=== PATIENT | male | born 1970 | race Caucasian/White ===

== ENCOUNTER → 2016-12-02 | Outpatient (CLI) | payer OTHER ==
[~2016-12-02] MED LIST: ARIP15TA PO; CARB200T PO; CGN1 PO; QUET1TAB9 PO; RISP3TAB12 PO; SERT50TA PO; ZOLP10TA PO
== END | disposition home or self-care (01) ==
LOC: C.RDSM 14:04
PROVIDERS: ATTEND Orthopaedic Surgery Sports Medicine
DX: M25.571 Pain in right ankle and joints of right foot (principal)

== ENCOUNTER → 2017-04-07 | Outpatient (CLI) | payer OTHER ==
[2017-04-07 12:28] LABS: BLOOD UREA NITROGEN 11 mg/dl (7-18); BUN/CREATININE RATIO 12.1 (10-20); CARBON DIOXIDE 25 mmol/L (21-32); CHLORIDE 108 mmol/L (98-107); CHOLESTEROL 174 mg/dl (0-200); CREATININE 0.94 mg/dl (0.60-1.40); GLUCOSE 122 mg/dl (70-99); POTASSIUM 3.8 mmol/L (3.5-5.1); SODIUM 140 mmol/L (136-145); TRIGLYCERIDES 93 mg/dl (0-150); VERY LOW DENSITY LIPOPROT CALC 19 mg/dl
[2017-04-07 12:31] LABS: CHOLESTEROL/HDL RATIO 2.9; HDL CHOLESTEROL 59 mg/dl; LDL CHOLESTEROL CALCULATED 96 mg/dl
[2017-04-07 12:34] LABS: CALCIUM 8.8 mg/dl (8.5-10.1)
[2017-04-07 13:13] LABS: ESTIMATED AVERAGE GLUCOSE 105 mg/dl; HA1C FLAG Normal (Normal)
== END | disposition home or self-care (01) ==
LOC: C.LAB1850 10:20
PROVIDERS: ATTEND Internal Medicine
DX: R73.01 Impaired fasting glucose (principal); E78.1 Pure hyperglyceridemia

== ENCOUNTER → 2017-07-19 | Outpatient (CLI) | payer OTHER | END | disposition home or self-care (01) | LOC: C.RDSM 12:14 | PROVIDERS: ATTEND Orthopaedic Surgery Sports Medicine | DX: M25.561 Pain in right knee (principal) ==

== ENCOUNTER → 2017-10-25 | Outpatient (CLI) | payer OTHER | END | disposition home or self-care (01) | LOC: C.LAB1850 08:07 | PROVIDERS: ATTEND Psychiatry & Neurology Psychiatry | DX: Z51.81 Encounter for therapeutic drug level monitoring (principal); Z79.899 Other long term (current) drug therapy ==

== ENCOUNTER → 2018-02-01 | Outpatient (CLI) | payer OTHER ==
[2018-02-01 12:17] LABS: BLOOD UREA NITROGEN 14 mg/dl (7-18); CALCIUM 8.8 mg/dl (8.5-10.1); CARBON DIOXIDE 25 mmol/L (21-32); CHOLESTEROL 193 mg/dl (0-200); CREATININE 1.09 mg/dl (0.60-1.40); GLUCOSE 157 mg/dl (70-99); POTASSIUM 3.8 mmol/L (3.5-5.1); SODIUM 137 mmol/L (136-145)
[2018-02-01 12:20] LABS: LDL CHOLESTEROL CALCULATED 116 mg/dl
[2018-02-01 12:22] LABS: HEMOGLOBIN A1C 5.3 % (4.5-5.6)
== END | disposition home or self-care (01) ==
LOC: C.LAB1850 10:47
PROVIDERS: ATTEND Internal Medicine
DX: E78.1 Pure hyperglyceridemia (principal); R73.01 Impaired fasting glucose

== ENCOUNTER → 2018-06-06 | Outpatient (CLI) | payer OTHER ==
[2018-06-06 10:30] LABS: HEMOGLOBIN A1C 5.3 % (4.5-5.6)
== END | disposition home or self-care (01) ==
LOC: C.LAB1850 07:50
PROVIDERS: ATTEND Psychiatry & Neurology Psychiatry
DX: Z51.81 Encounter for therapeutic drug level monitoring (principal); Z79.899 Other long term (current) drug therapy

== ENCOUNTER 2019-12-16 19:02 | Inpatient (IN) ==
--- NOTE | 2019-12-16 20:07 | XRay Report ---
XR hip RT 2V w pelvis, XR femur RT 2V routine CLINICAL HISTORY: fall. Right hip and right leg pain. COMPARISON STUDY: Leg length study 11/21/2019. FINDINGS: No fracture or dislocation within the pelvis or left hip. The sacrum appears intact. Slight ly impacted right femoral neck fracture. The mid to distal femur is intact. IMPRESSION: Slightly impacted right femoral neck fracture. ACT 112: Negative or not required by law. Electronically signed by: Matt Newell M.D. 12/16/2019 8:06 PM
[2019-12-16 21:06] LABS: Basophils # (auto) 0.01 K/uL (0-0.2); Basophils % (auto) 0.1 %; Eosinophils # (auto) 0.01 K/uL (0-0.5); Eosinophils % (auto) 0.1 %; Hematocrit (blood only) 44.9 % (42-52); Hemoglobin 15.8 g/dL (14.0-18.0); Immature Granulocytes # (auto) 0.03 K/uL (0.00-0.02); Immature Granulocytes % (auto) 0.2 %; Lymphocytes # (auto) 0.58 K/uL (1.2-3.4); Lymphocytes % (auto) 4.7 %; Mean Corpuscular Hemoglobin 31.9 pg (25-34); Mean Corpuscular Hgb Conc 35.2 g/dL (32-36); Mean Corpuscular Volume 90.5 fL (80-100); Mean Platelet Volume 9.1 fL (7.4-10.4); Monocytes # (auto) 0.46 K/uL (0.11-0.59); Monocytes % (auto) 3.7 %; Neutrophils # (auto) 11.36 K/uL (1.4-6.5); Neutrophils % (auto) 91.2 %; Platelet Count 139 K/uL (130-400); RDW Coefficient of Variation 12.4 % (11.5-14.5); RDW Standard Deviation 40.8 fL (36.4-46.3); Red Blood Count 4.96 M/uL (4.7-6.1); White Blood Count 12.45 K/uL (4.8-10.8)
[2019-12-16 21:17] LABS: INR 1.2 (0.9-1.1); Partial Thromboplastin Time 25.9 Seconds (21.0-31.0); Prothrombin Time 12.2 Seconds (9.0-12.0)
[2019-12-16 21:21] LABS: BUN Creatinine Ratio 12.6 (10-20); Blood Urea Nitrogen 15 mg/dl (7-18); Calcium 9.1 mg/dl (8.5-10.1); Carbon Dioxide 27 mmol/L (21-32); Chloride 104 mmol/L (98-107); Est GFR (African American) 79.9; Est GFR (Non-African American) 68.9; Glucose 117 mg/dl (70-99); Potassium 4.1 mmol/L (3.5-5.1); Sodium 138 mmol/L (136-145)
[2019-12-16 21:30] LABS: Appearance Urine Clear (Clear); Bilirubin Urine Negative (Negative); Blood Urine Negative (Negative); Color Urine Yellow; Glucose Urine UA Negative (Negative); Ketones Urine Negative (Negative); Leukocyte Esterase Urine Negative (Negative); Nitrite Urine Negative (Negative); Protein Urine Negative (Negative); Urobilinogen Urine Negative (Negative)
--- NOTE | 2019-12-16 21:39 | XRay Report ---
XR chest 1V portable HISTORY: pre op COMPARISON: Chest 07/09/2008. FINDINGS: The lungs are clear. Cardiac silhouette is normal in size. No pleural effusions. No pneumot horax. IMPRESSION: No acute process. ACT 112: Negative or not required by law. Electronically signed by: Matt Newell M.D. 12/16/2019 9:38 PM
--- NOTE | 2019-12-16 22:14 | History & Physical Report ---
Date of Service December 16, 2019 Assessment & Plan (1) Closed fracture of neck of right femur: Closed right femoral neck fracture- N.p.o. after midnight except essential medications. NSS + KCl 20 mEq at 100 mils per hour. Tylenol 650 mg p.o. every 6 hours. Mild pain or temperature. Elmer 5/325, 1 p.o. every 4 hours PRN moderate pain. Morphine sulfate 4 mg IV every 3 hours as needed severe pain. Consult orthopedics. Present on Admission?: Yes (2) Essential hypertriglyceridemia: On no noted treatment. Check a fasting lipid panel in the a.m. Present on Admission?: Yes (3) Depression: Depression/schizoaffective disorder/mental disability/seizure disorder- Continue Zyprexa, benztropine, carbamazepine, Seroquel, risperidone, sertraline and zaleplon. Present on Admission?: Yes (4) Schizoaffective disorder: See above Present on Admission?: Yes (5) Mental disability: See above Present on Admission?: Yes (6) Seizures: See above Present on Admission?: Yes (7) Eczema: Continue usual topical agents. Present on Admission?: Yes History of Present Illness Chief Complaint: The patient presents to the emergency department complaint of right hip pain after he fell on his right hip while playing basketball earlier in the day prior to arrival. Primary Care Provider: Tyler Golden MD The patient is a 49-year-old male with a past medical history including depression, dermatitis, eczema, essential hypertriglyceridemia, folliculitis, insomnia, schizoaffective disorder, left radial head fracture and mental disability. He presents to the emergency department after he developed right hi p pain after falling while playing basketball earlier in the day. He reports that he waited about 6 hours after the injury to come to the ED. Allergies Allergy/AdvReac Type Severity Reaction Status Date / Time No Known Allergies Allergy Verified 12/16/19 20:11 Home Medications Home Medications Medication Instructions Recorded Confirmed Type aripiprazole 15 mg tablet 15 mg PO DAILY tab 07/24/19 12/16/19 History benztropine 1 mg tablet 1 mg PO QAM tab 07/24/19 12/16/19 History carbamazepine 400 mg 400 mg PO BID tab 07/24/19 12/16/19 History tablet,extended release,12 hr clindamycin phosphate 1 % topical 1 appln TOPICAL .COMPLEX ml 07/24/19 12/16/19 History solution fluocinonide 0.05 % topical 1 appln TOPICAL .COMPLEX gm 07/24/19 12/16/19 History ointment hydrocortisone 1 % topical ointment 1 appln TOPICAL .COMPLEX gm 07/24/19 12/16/19 History risperidone 3 mg tablet 3 mg PO HS tab 07/24/19 12/16/19 History sertraline 25 mg tablet 25 mg PO HS tab 07/24/19 12/16/19 History triamcinolone acetonide 0.1 % 1 appln TOPICAL .COMPLEX gm 07/24/19 12/16/19 History topical cream quetiapine 100 mg PO HS 12/16/19 12/16/19 History zaleplon 10 mg PO HS PRN 12/16/19 12/16/19 History Past Med/Surg History Medical History Depression (Acute) Dermatitis (Acute) Eczema (Acute) Essential hypertriglyceridemia (Acute) Folliculitis (Acute) Insomnia (Acute) Irritation of left eye (Acute) Left radial head fracture (Acute) Mental disability (Acute) Osteoarthritis of knee (Acute) Otalgia, bilateral (Acute) Schizoaffective disorder (Acute) Seizures Surgical History History of left knee surgery Family History Grandmother Diabetes Grandfather Coronary heart disease Social History Preferred Language: Malay Communication 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 Beliefs That Will Affect Care: None marital status: Current Living Situation: Significant Other current occupational status: disabled Other Information That Helps Us Care for You: No Feels Safe at Home: Yes Safety Concerns: Feels Safe At This Time Smoking Status: Never smoker Do You Dip or Chew Tobacco: No ; Hx Alcohol Use: No Hx Substance Use: No Review of Systems Review of Systems: The patient denies chest pain, palpitations, shortness of breath, dyspnea on exertion, cough, lower extremity swelling, sore throat, fevers, chills, sweats, weight change, fatigue, nausea, vomiting, diarrhea , constipation, abdominal pain, pelvic pain, blood in urine or stool, dysuria, urinary frequency or urgency, lightheadedness, dizziness, headache, memory loss, loss of consciousness, rash, abnormal bruising or bleeding, focal or generalized weakness, numbness or tingling in arms or left leg, generalized arthralgias or myalgias, back or neck pain, or night sweats. The review of systems is otherwise negative other than for that already noted above, and at least 10 systems have been reviewed. Physical Exam Physical Exam: The patient is awake, alert and oriented 3, well developed and well nourished, normocephalic and atraumatic, lying in bed and in no acute distress. HEENT--PERRL, EOMI, mucous membranes and oropharynx dry. Neck--supple. No JVD. No bruits. Thyroid normal, trachea midline, no adenopathy. Heart--normal S1 and S2. No murmurs, rubs or gallops. Lungs--clear bilaterally, no respiratory distress, no accessory muscle use. Abdomen--normal bowel sounds and soft. Nontender. Nondistended, no hernias or masses, no organomegaly. Extremities--no cyanosis or clubbing. No edema. There are good distal pulses b/l. Dermatologic--normal skin turgor, normal color, no abnormal lymph nodes, no rash. Neurologic--cranial nerves II through XII grossly intact. Rheumatologic--decreased range of motion of right hip, with reproducible pain ov er right hip and pelvic area Psychiatric--normal affect. Results & Data Vital Signs (Past 12 Hours) Vital Signs Temp Pulse Pulse Resp BP BP Pulse Ox 12/16/19 22:06 98 12/16/19 22:02 75 123/70 98 12/16/19 19:05 98.2 F 74 18 109/73 95 Laboratory Results Laboratory Results WBC 12.45 K/uL (4.8-10.8) H 12/16/19 20:55 RBC 4.96 M/uL (4.7-6.1) 12/16/19 20:55 Hgb 15.8 g/dL (14.0-18.0) 12/16/19 20:55 Hct 44.9 % (42-52) 12/16/19 20:55 MCV 90.5 fL (80-100) 12/16/19 20:55 MCH 31.9 pg (25-34) 12/16/19 20:55 MCHC 35.2 g/dL (32-36) 12/16/19 20:55 RDW Std Deviation 40.8 fL (36.4-46.3) 12/16/19 20: RDW Coeff of Silvia 12.4 % (11.5-14.5) 12/16/19 20: Plt Count 139 K/uL (130-400) 12/16/19 20: MPV 9.1 fL (7.4-10.4) 12/16/19 20:55 Immature Gran % (Auto) 0.2 % 12/16/19 20:55 Neut % (Auto) 91.2 % 12/16/19 20:55 Lymph % (Auto) 4.7 % 12/16/19 20:55 Stokes % (Auto) 3.7 % 12/16/19 20:55 Eos % (Auto) 0.1 % 12/16/19 20:55 Baso % (Auto) 0.1 % 12/16/19 20:55 Immature Gran # (Auto) 0.03 K/uL (0.00-0.02) H 12/16/19 20:55 Neut # (Auto) 11.36 K/uL (1.4-6.5) H 12/16/19 20:55 Lymph # (Auto) 0.58 K/uL (1.2-3.4) L 12/16/19 20:55 Stokes # (Auto) 0.46 K/uL (0.11-0.59) 12/16/19 20:55 Eos # (Auto) 0.01 K/uL (0-0.5) 12/16/19 20:55 Baso # (Auto) 0.01 K/uL (0-0.2) 12/16/19 20:55 PT 12.2 Seconds (9.0-12.0) H 12/16/19 20:55 INR 1.2 (0.9-1.1) H 12/16/19 20:55 APTT 25.9 Seconds (21.0-31.0) 12/16/19 20:55 PTT Ratio 1.0 12/16/19 20:55 Sodium 138 mmol/L (136-145) 12/16/19 20:55 Potassium 4.1 mmol/L (3.5-5.1) 12/16/19 20:55 Chloride 104 mmol/L (98-107) 12/16/19 20:55 Carbon Dioxide 27 mmol/L (21-32) 12/16/19 20:55 Anion Gap 6.0 (3-11) 12/16/19 20:55 BUN 15 mg/dl (7-18) 12/16/19 20:55 Creatinine 1.21 mg/dl (0.6-1.4) 12/16/19 20:55 Est Cr Clr Drug Dosing Not Reportable 12/16/19 20:55 Est GFR ( Amer) 79.9 12/16/19 20:55 Est GFR (Non-Af Amer) 68.9 12/16/19 20:55 BUN/Creatinine Ratio 12.6 (10-20) 12/16/19 20:55 Glucose 117 mg/dl (70-99) H 12/16/19 20:55 Calcium 9.1 mg/dl (8.5-10.1) 12/16/19 20:55 Urine Color Yellow 12/16/19 21:15 Urine Appearance Clear (Clear) 12/16/19 21:15 Urine pH 7.0 (4.5-7.5) 12/16/19 21:15 Ur Specific [place] 1.010 (1.000-1.030) 12/16/19 21:15 Urine Protein Negative (Negative) 12/16/19 21:15 Urine Glucose (UA) Negative (Negative) 12/16/19 21:15 Urine Ketones Negative (Negative) 12/16/19 21:15 Urine Blood Negative (Negative) 12/16/19 21:15 Urine Nitrite Negative (Negative) 12/16/19 21:15 Urine Bilirubin Negative (Negative) 12/16/19 21:15 Urine Urobilinogen Negative (Negative) 12/16/19 21:15 Ur Leukocyte Esterase Negative (Negative) 12/16/19 21:15 Blood Type B Positive 12/16/19 21:07 Antibody Screen NEGATIVE 12/16/19 21:07 Diagnostic Findings [facility], [place] [phone] XRay Report Patient: HECTOR CASTRO [facility] Date: 12/16/19 MR#: [id number]: [address] Acct ID:[id number]: Date: 1970[facility] Zip: [place] [address] Age: 49Location: ED Sex: M Room/Bed: Att Phy:Diagnosis: FALL,R INNER THIGH PAIN Alida Phy: Tyler Golden, MDService Date: 12/16/19 Fam Phy:Interpreting Phy: Matt Newell MD Admit Phy: Ordering Phy: Oleg Carl MD cc: ~ XR hip RT 2V w pelvis, XR femur RT 2V routine CLINICAL HISTORY: fall. Right hip and right leg pain. COMPARISON STUDY: Leg length study 11/21/2019. FINDINGS: No fracture or dislocation within the pelvis or left hip. The sacrum appears intact. Slightly impacted right femoral neck fracture. The mid to distal femur is intact. IMPRESSION: Slightly impacted right femoral neck fracture. ACT 112: Negative or not required by law. Electronically signed by: Matt Newell M.D. 12/16/2019 8:06 PM Dictated: 12/16/192001 Transcribed: 12/16/[address] [place] [address] XRay Report Patient: HECTOR CASTRO Date: 12/16/19 MR#: [id number]: [address] Acct ID:[id number]: Date: 1970[facility] Zip: [place] [address] Age: 49Location: ED Sex: M Room/Bed: Att Phy:Diagnosis: FALL,R INNER THIGH PAIN Alida Phy: Tyler Golden, MDService Date: 12/16/19 Fam Phy:Interpreting Phy: Matt Newell MD Admit Phy: Ordering Phy: Oleg Carl MD cc: ~ XR hip RT 2V w pelvis, XR femur RT 2V routine CLINICAL HISTORY: fall. Right hip and right leg pain. COMPARISON STUDY: Leg length study 11/21/2019. FINDINGS: No fracture or dislocation within the pelvis or left hip. The sacrum appears intact. Slightly impacted right femoral neck fracture. The mid to distal femur is intact. IMPRESSION: Slightly impacted right femoral neck fracture. ACT 112: Negative or not required by law. Electronically signed by: Matt Newell M.D. 12/16/2019 8:06 PM Dictated: 12/16/192001 Transcribed: 12/16/192001 [phone] Patient: HECTOR CASTRO Date: 12/16/19 MR#: [id number]: [address] Acct ID:[id number]: Date: 1970City Zip: [place] [address] Age: 49Location: ED Sex: M Room/Bed: Att Phy:Diagnosis: FALL,R INNER THIGH PAIN Alida Phy: Tyler Golden, MDService Date: 12/16/19 Fam Phy:Interpreting Phy: Matt Newell MD Admit Phy: Ordering Phy: Oleg Carl MD cc: ~ XR chest 1V portable HISTORY: pre op COMPARISON: Chest 07/09/2008. FINDINGS: The lungs are clear. Cardiac silhouette is normal in size. No pleural effusions. No pneumothorax. IMPRESSION: No acute process. ACT 112: Negative or not required by law. Electronically signed by: Matt Newell M.D. 12/16/2019 9:38 PM Dictated: 12/16/192135 Transcribed: 12/16/192135 Code Status & VTE Plan Code Status Full code VTE Prophylaxis Plan VTE Prophylaxis will be ordered: Yes PG Care Time/CCT Total # of Minutes Spent Total Time Spent with Patient: Total time spent is greater than 50% in coordination of care (as documented) at patient's floor/unit and/or counseling patient: Coding Level of Care Code 53143 Initial Inpt Care Lvl 3 Diagnoses Closed fracture of neck of right femur S72.001A Essential hypertriglyceridemia E78.1 Depression F32.9 Schizoaffective disorder F25.9 Mental disability F79 Seizures R56.9 Eczema L30.9
[2019-12-16] MEDS ORDERED: ACETAMINOPHEN 325 MG TAB PO PRN (22:28)
[2019-12-16] MEDS ORDERED: MoRPHine SULFATE 4 MG/ML 1 ML CARP\\VIAL IV PRN (22:28)
[2019-12-16] MEDS ORDERED: ZALEPLON 5 MG CAPSULE PO PRN (22:28)
[2019-12-16] MEDS ORDERED: ONDANSETRON INJ 2 MG/ML 2 ML VIAL IV PRN (22:28)
[2019-12-16] MEDS: TRIAMCINOLONE ACET 0.1% CR 15 GM TUBE TOP SCH (22:54)
[2019-12-16] MEDS: HYDROCORTISONE 1% CRM 30 GM TUBE EXT SCH (22:54)
[2019-12-16] MEDS: NSS + 20MEQ KCL 20 MEQ/1,000 ML BAG IV SCH (22:55)
[2019-12-16] MEDS: FLUOCINONIDE 0.05% OINT 15 GM TUBE EXT SCH (22:55)
[2019-12-16] MEDS: risperiDONE 3 MG TABLET PO SCH (22:56)
[2019-12-16] MEDS: CARBAMAZEPINE 200 MG TABCR PO SCH (22:56)
[2019-12-16] MEDS: QUETIAPINE FUMARATE 100 MG TABLET PO SCH (22:56)
[2019-12-16] MEDS: HYDROCODONE/ACETAMOPHEN 5/325MG TAB PO PRN (23:09)
--- NOTE | 2019-12-16 23:53 | Emergency Department Note ---
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 The patient states that he was playing basketball earlier today when he turned and fell. He currently complains of groin pain and presents concern for a pulled muscle. 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 Of note, the patient also experienced an episode of nausea and vomiting today. He denies hematuria and abdominal pain. The patient offers no further concerns at this time. 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 Home Medications Home Medications Medication Instructions Recorded Confirmed Type aripiprazole 15 mg tablet 15 mg PO DAILY tab 07/24/19 12/16/19 History benztropine 1 mg tablet 1 mg PO QAM tab 07/24/19 12/16/19 History carbamazepine 400 mg 400 mg PO BID tab 07/24/19 12/16/19 History tablet,extended release,12 hr clindamycin phosphate 1 % topical 1 appln TOPICAL .COMPLEX ml 07/24/19 12/16/19 History solution fluocinonide 0.05 % topical 1 appln TOPICAL .COMPLEX gm 07/24/19 12/16/19 History ointment hydrocortisone 1 % topical ointment 1 appln TOPICAL .COMPLEX gm 07/24/19 12/16/19 History risperidone 3 mg tablet 3 mg PO HS tab 07/24/19 12/16/19 History sertraline 25 mg tablet 25 mg PO HS tab 07/24/19 12/16/19 History triamcinolone acetonide 0.1 % 1 appln TOPICAL .COMPLEX gm 07/24/19 12/16/19 History topical cream quetiapine 100 mg PO HS 12/16/19 12/16/19 History zaleplon 10 mg PO HS PRN 12/16/19 12/16/19 History Allergies Allergy/AdvReac Type Severity Reaction Status Date / Time No Known Allergies Allergy Verified 12/16/19 20:11 Past Med/Surg History Medical History Depression (Acute) Dermatitis (Acute) Eczema (Acute) Essential hypertriglyceridemia (Acute) Folliculitis (Acute) Insomnia (Acute) Irritation of left eye (Acute) Left radial head fracture (Acute) Mental disability (Acute) Osteoarthritis of knee (Acute) Otalgia, bilateral (Acute) Schizoaffective disorder (Acute) Seizures Surgical History History of left knee surgery Family History Grandmother Diabetes Grandfather Coronary heart disease Social History Preferred Language: Tristanian marital status: current occupational status: disabled Feels Safe at Home: Yes Smoking Status: Never smoker Hx Alcohol Use: No Review of Systems See HPI for pertinent positives & negatives. and A total of 10 systems reviewed and were otherwise negative Physical Exam Vital Signs Vital Signs - 24 hr 12/16/19 19:05 Temperature 36.8 C Temperature Source Oral Pulse Rate 74 Respiratory Rate 18 Respiratory Effort / Characteristics Non-Labored Respiratory Depth Normal Respiratory Pattern Regular Blood Pressure 109/73 Blood Pressure Mean 85 Pulse Oximetry 95 Oxygen Delivery Method Room Air Sepsis Recent Fever Within 48 Hours No Sepsis Action Taken by Nursing No Action Required GENERAL: He is oriented to person, place, and time. He appears well-developed and well-nourished. He does not appear distressed. HENT: Exam performed. - Head: Normocephalic and atraumatic. - Right Ear: External ear normal. No mastoid tenderness. - Left Ear: External ear normal. No mastoid tenderness. - Mouth/Throat: The oropharynx is clear and moist. No trismus in the jaw. No dental abscesses or uvula swelling. No oropharyngeal exudate or tonsillar abscesses. EYES: Conjunctivae and EOM are normal. Pupils are equal, round, and reactive to light. Right eye exhibits no discharge. Left eye exhibits no discharge. No scleral icterus. NECK: Normal range of motion. Neck supple. No JVD present. No spinous process tenderness present. No carotid bruit present. No rigidity. No tracheal deviation and normal range of motion present. No Brudzinski's sign and no Kernig's sign noted. CV: Normal rate, regular rhythm, normal heart sounds and intact distal pulses. There is no peripheral edema. Palpable radial pulses bue. PULM/CHEST: Effort normal and breath sounds normal. No respiratory distress. No stridor. He has no wheezes. He has no rales. - Chest Wall: He exhibits no tenderness. ABD: The abdomen is soft. Bowel sounds are normal. He has no distension. No mass is present. There is no tenderness. There is no rebound, no guarding, no Anderson's sign and no tenderness at McBurney's point. Rovsig negative. MUSC/SKEL: Pelvis is stable. Pain on palpation over the anterior right thigh and over the proximal femur. LYMPH: No cervical adenopathy. NEURO: He is alert and oriented to person, place, and time. He has normal strength. No cranial nerve deficit or sensory deficit. Coordination and gait normal. GCS eye subscore is 4. GCS verbal subscore is 5. GCS motor subscore is 6. Cerebellar tests wnl. SKIN: Skin is warm and dry. He is not diaphoretic. PSYCH: He has a normal mood and affect. Behavior is normal. Judgment and thought content normal. : No palpable inguinal hernias bilaterally. Course Course 1914: Past medical records reviewed. The patient was evaluated in room B05. A complete history and physical exam was performed. 2046: Imaging shows right femoral neck fracture. The patient states that he sees [facility]. He will be admitted to the hospitalist team with [facility] on consult. [facility] was notified in the ED today and I discussed x-ray findings with the patient's mother via cell phone. The patient verbally expressed understanding and agreement of the treatment plan. The patient will be evaluated for further treatment. Dr. Green's team was notified about the patient.I spoke to Dr. Cornejo who agrees to be on consult for this case. Cardiac monitoring: An order was placed for continuous cardiac monitoring. The monitor shows a rate of 75 with normal sinus rhythm Administered Medications Hydrocodone Bitart/Acetaminophen ([place] 5/325) 1 tab PO Q4H PRN PRN Reason: Moderate Pain Stop: 12/30/19 22:27 Last Admin: 12/16/19 23:09 Dose: 1 tab Documented by: [id number] Carbamazepine (Tegretol Xr) 400 mg PO BID [place] Stop: 01/15/20 22:27 Last Admin: 12/16/19 22:56 Dose: 400 mg Documented by: [id number] Fluocinonide (Lidex 0.5%) 1 appln EXT BID [place] Stop: 01/15/20 22:27 Last Admin: 12/16/19 22:55 Dose: Not Given Documented by: [id number] Hydrocortisone (Hydrocortisone 1%) 1 appln EXT BID [place] Stop: 01/15/20 22:27 Last Admin: 12/16/19 22:54 Dose: Not Given Documented by: [id number] Potassium Chloride/Sodium Chloride (Normal Saline W/20 Meq Kcl) 20 meq in 1,000 mls @ 100 mls/hr IV .Q10H [place] Stop: 01/15/20 22:27 Last Admin: 12/16/19 22:55 Dose: 100 mls/hr Documented by: [id number] Miscellaneous (Order Awaiting Action) 1 ea N/A QS [place] Stop: 01/16/20 00:00 Last Admin: 12/16/19 23:01 Dose: Not Given Documented by: [id number] Quetiapine Fumarate (Seroquel) 100 mg PO [facility] Stop: 01/16/20 20:59 Last Admin: 12/16/19 22:56 Dose: 100 mg Documented by: [id number] Risperidone (Risperdal) 3 mg PO HS [place] Stop: 01/16/20 20:59 Last Admin: 12/16/19 22:56 Dose: 3 mg Documented by: [id number] Triamcinolone Acetonide (Kenalog 0.1%) 1 appln TOP BID [place] Stop: 01/15/20 22:27 Last Admin: 12/16/19 22:54 Dose: Not Given Documented by: [id number] Medical Decision Making Medical Records Attestation: I reviewed the patient's medical records. Home Medications Current Medication List: was personally reviewed by me Laboratory Data Attestation: I reviewed the patient's lab results. Result diagrams: 12/16/19 20:55 12/16/19 20:55 Lab Results 12/16/19 12/16/19 12/16/19 Range/Units 20:55 20:55 20:55 WBC 12.45 H (4.8-10.8) K/uL RBC 4.96 (4.7-6.1) M/uL Hgb 15.8 (14.0-18.0) g/dL Hct 44.9 (42-52) % MCV 90.5 (80-100) fL MCH 31.9 (25-34) pg MCHC 35.2 (32-36) g/dL RDW Std Deviation 40.8 (36.4-46.3) fL RDW Coeff of Silvia 12.4 (11.5-14.5) % Plt Count 139 (130-400) K/uL MPV 9.1 (7.4-10.4) fL Immature Gran % (Auto) 0.2 % Neut % (Auto) 91.2 % Lymph % (Auto) 4.7 % [place] % (Auto) 3.7 % Eos % (Auto) 0.1 % Baso % (Auto) 0.1 % Immature Gran # (Auto) 0.03 H (0.00-0.02) K/uL Neut # (Auto) 11.36 H (1.4-6.5) K/uL Lymph # (Auto) 0.58 L (1.2-3.4) K/uL [place] # (Auto) 0.46 (0.11-0.59) K/uL Eos # (Auto) 0.01 (0-0.5) K/uL Baso # (Auto) 0.01 (0-0.2) K/uL PT 12.2 H (9.0-12.0) Seconds INR 1.2 H (0.9-1.1) APTT 25.9 (21.0-31.0) Seconds PTT Ratio 1.0 Sodium 138 (136-145) mmol/L Potassium 4.1 (3.5-5.1) mmol/L Chloride 104 (98-107) mmol/L Carbon Dioxide 27 (21-32) mmol/L Anion Gap 6.0 (3-11) BUN 15 (7-18) mg/dl Creatinine 1.21 (0.6-1.4) mg/dl Est Cr Clr Drug Dosing Not Reportable Est GFR ( Amer) 79.9 Est GFR (Non-Af Amer) 68.9 BUN/Creatinine Ratio 12.6 (10-20) Glucose 117 H (70-99) mg/dl Calcium 9.1 (8.5-10.1) mg/dl Urine Color Urine Appearance (Clear) Urine pH (4.5-7.5) Ur Specific [place] (1.000-1.030) Urine Protein (Negative) Urine Glucose (UA) (Negative) Urine Ketones (Negative) Urine Blood (Negative) Urine Nitrite (Negative) Urine Bilirubin (Negative) Urine Urobilinogen (Negative) Ur Leukocyte Esterase (Negative) Blood Type Antibody Screen 12/16/19 12/16/19 Range/Units 21:07 21:15 WBC (4.8-10.8) K/uL RBC (4.7-6.1) M/uL Hgb (14.0-18.0) g/dL Hct (42-52) % MCV (80-100) fL MCH (25-34) pg MCHC (32-36) g/dL RDW Std Deviation (36.4-46.3) fL RDW Coeff of Silvia (11.5-14.5) % Plt Count (130-400) K/uL MPV (7.4-10.4) fL Immature Gran % (Auto) % Neut % (Auto) % Lymph % (Auto) % [place] % (Auto) % Eos % (Auto) % Baso % (Auto) % Immature Gran # (Auto) (0.00-0.02) K/uL Neut # (Auto) (1.4-6.5) K/uL Lymph # (Auto) (1.2-3.4) K/uL [place] # (Auto) (0.11-0.59) K/uL Eos # (Auto) (0-0.5) K/uL Baso # (Auto) (0-0.2) K/uL PT (9.0-12.0) Seconds INR (0.9-1.1) APTT (21.0-31.0) Seconds PTT Ratio Sodium (136-145) mmol/L Potassium (3.5-5.1) mmol/L Chloride (98-107) mmol/L Carbon Dioxide (21-32) mmol/L Anion Gap (3-11) BUN (7-18) mg/dl Creatinine (0.6-1.4) mg/dl Est Cr Clr Drug Dosing Est GFR ( Amer) Est GFR (Non-Af Amer) BUN/Creatinine Ratio (10-20) Glucose (70-99) mg/dl Calcium (8.5-10.1) mg/dl Urine Color Yellow Urine Appearance Clear (Clear) Urine pH 7.0 (4.5-7.5) Ur Specific [place] 1.010 (1.000-1.030) Urine Protein Negative (Negative) Urine Glucose (UA) Negative (Negative) Urine Ketones Negative (Negative) Urine Blood Negative (Negative) Urine Nitrite Negative (Negative) Urine Bilirubin Negative (Negative) Urine Urobilinogen Negative (Negative) Ur Leukocyte Esterase Negative (Negative) Blood Type B Positive Antibody Screen NEGATIVE Imaging Data Radiologist's Impression: Radiology results as stated below per my review and the radiologist's interpretation: XR hip RT 2V w pelvis, XR femur RT 2V routine CLINICAL HISTORY: fall. Right hip and right leg pain. COMPARISON STUDY: Leg length study 11/21/2019. FINDINGS: No fracture or dislocation within the pelvis or left hip. The sacrum appears intact. Slightly impacted right femoral neck fracture. The mid to distal femur is intact. IMPRESSION: Slightly impacted right femoral neck fracture. ACT 112: Negative or not required by law. Electronically signed by: Matt Newell M.D. 12/16/2019 8:06 PM XR hip RT 2V w pelvis, XR femur RT 2V routine CLINICAL HISTORY: fall. Right hip and right leg pain. COMPARISON STUDY: Leg length study 11/21/2019. FINDINGS: No fracture or dislocation within the pelvis or left hip. The sacrum a ppears intact. Slightly impacted right femoral neck fracture. The mid to distal femur is intact. IMPRESSION: Slightly impacted right femoral neck fracture. ACT 112: Negative or not required by law. Electronically signed by: Matt Newell M.D. 12/16/2019 8:06 PM XR chest 1V portable HISTORY: pre op COMPARISON: Chest 07/09/2008. FINDINGS: The lungs are clear. Cardiac silhouette is normal in size. No pleural effusions. No pneumothorax. IMPRESSION: No acute process. ACT 112: Negative or not required by law. Electronically signed by: Matt Newell M.D. 12/16/2019 9:38 PM Blood Pressure Blood Pressure Findings: Low blood pressure Blood Pressure Disposition: further management by hospitalist MDM Narrative Imaging shows right femoral neck fracture. The patient states that he sees [facility]. He will be admitted to the hospitalist team with [facility] on consult. [facility] was notified in the ED today and I discussed x-ray findings with the patient's mother via cell phone. The patient verbally expressed understanding and agreement of the treatment plan. The patient will be evaluated for further treatment. Dr. Green's team was notified about the patient.I spoke to Dr. Cornejo who agrees to be on consult for this case. Cardiac monitoring: An order was placed for continuous cardiac monitoring. The monitor shows a rate of 75 with normal sinus rhythm Impression & Plan Femoral neck fracture Discharge Plan Visit Data *Final* Discharge Date/Time: 12/16/19 22:35 Chief Complaint: Groin Pain Stated Complaint: FALL,R INNER THIGH PAIN ED Provider: Oleg Carl Discharge Problem: Femoral neck fracture Patient Disposition: Admitted As Inpatient Discharge Instructions Interventions: ED Discharge Assessment Last Done: 12/16/19 22:06 Discharge Problem: Femoral neck fracture Qualifiers: Encounter type: initial encounter Fracture type: closed Laterality: right Qualified Code(s): S72.001A - Fracture of unspecified part of neck of right femur, initial encounter for closed fracture The scribe's documentation has been prepared under my direction and personally reviewed by me in its entirety. I confirm that the note above accurately reflects all work, treatment, procedures, and medical decision making performed by me.
[2019-12-17] MEDS ORDERED: INFLUENZA ADMINISTRATION CHARGE ONE (00:37)
[2019-12-17] MEDS ORDERED: INFLUENZA VIRUS QUAD VACCINE 0.5 ML SYR IM ONE (00:37)
[2019-12-17 06:05] LABS: Chol HDL Ratio 3; Cholesterol 162 mg/dl (0-200); HDL Cholesterol 51 mg/dl; LDL Cholesterol Calculated 96 mg/dl; Triglycerides 76 mg/dl (0-150); VLDL Cholesterol 15 mg/dl
[2019-12-17] MEDS: HYDROCODONE/ACETAMOPHEN 5/325MG TAB PO PRN ×3 (06:07→21:54)
[2019-12-17] MEDS: BENZTROPINE MESYLATE 1 MG TAB PO SCH (08:27)
[2019-12-17] MEDS: ARIPiprazole 15 MG TAB PO SCH (08:27)
[2019-12-17] MEDS: NSS + 20MEQ KCL 20 MEQ/1,000 ML BAG IV SCH ×2 (08:27→21:49)
[2019-12-17] MEDS: CARBAMAZEPINE 200 MG TABCR PO SCH ×2 (08:28→21:50)
[2019-12-17] MEDS: FLUOCINONIDE 0.05% OINT 15 GM TUBE EXT SCH ×2 (08:29→21:48)
[2019-12-17] MEDS: TRIAMCINOLONE ACET 0.1% CR 15 GM TUBE TOP SCH ×2 (08:29→21:48)
[2019-12-17] MEDS: HYDROCORTISONE 1% CRM 30 GM TUBE EXT SCH ×2 (08:29→21:48)
--- NOTE | 2019-12-17 10:20 | Electrocardiogram Report ---
Test Reason : Blood Pressure : / mmHG Vent. Rate : 071 BPM Atrial Rate : 071 BPM P-R Int : 152 ms QRS Dur : 084 ms QT Int : 372 ms P-R-T Axes : 066 037 038 degrees QTc Int : 404 ms Normal sinus rhythm Possible Left atrial enlargement Borderline ECG When compared with ECG of 17-NOV-2010 16:35, No significant change was found Confirmed by Marcell Sheriff ([id number]) on 12/17/2019 10:20:40 AM Referred By: REFERRED SELF Confirmed By:Mic Sheriff
--- NOTE | 2019-12-17 10:38 | Orthopedic Consultation ---
Date of Consultation December 17, 2019 Assessment & Plan (1) Closed fracture of neck of right femur: Plan on surgical intervention later today. Keep NPO Dr. Berry will see patient, review and sign consent form with patient after his outpatient procedures this AM. Case currently scheduled for OR procedure around 2 PM today Patient is agreeable and is going to contact his mother to let her know. Supervising Physician Co-Signing Physician Notes Agree with above note. I saw and examined the patient and reviewed his x-rays. He has a minimally displaced, balgus impacted femoral neck fracture. I recommend surgical treatment. Risks/benefits, alternatives, and expected outcomes from surgery were discussed. Patient elects to proceed. All questions answered. Informed consent signed. Proceed to OR today. Re-admit to hospital post-op. History of Present Illness Reason for Consultation: Right femoral neck fracture Requesting Physician: Dennys Berry MD Attending Physician: Shruthi Strong MD History of Present Illness This 49 yo M is seen in consultation for an impacted Right femoral neck fracture that he sustained after fall on the hip while playing basketball with the [employer] yesterday AM. Patient states that he was unable to get back up after the fall. Refers all pain to anterior and lateral hip. Denies numbness or tingling in toes. States that pain is tolerable. Denies CP, SOB, nausea, vomiting, fever, chill, sweats or lethargy. Has been NPO since midnight. Allergies Allergy/AdvReac Type Severity Reaction Status Date / Time No Known Allergies Allergy Verified 12/16/19 20:11 Home Medications Home Medications Medication Instructions Recorded Confirmed Type aripiprazole 15 mg tablet 15 mg PO DAILY tab 07/24/19 12/16/19 History benztropine 1 mg tablet 1 mg PO QAM tab 07/24/19 12/16/19 History carbamazepine 400 mg 400 mg PO BID tab 07/24/19 12/16/19 History tablet,extended release,12 hr clindamycin phosphate 1 % topical 1 appln TOPICAL .COMPLEX ml 07/24/19 12/16/19 History solution fluocinonide 0.05 % topical 1 appln TOPICAL .COMPLEX gm 07/24/19 12/16/19 History ointment hydrocortisone 1 % topical ointment 1 appln TOPICAL .COMPLEX gm 07/24/19 12/16/19 History risperidone 3 mg tablet 3 mg PO HS tab 07/24/19 12/16/19 History sertraline 25 mg tablet 25 mg PO HS tab 07/24/19 12/16/19 History triamcinolone acetonide 0.1 % 1 appln TOPICAL .COMPLEX gm 07/24/19 12/16/19 History topical cream quetiapine 100 mg PO HS 12/16/19 12/16/19 History zaleplon 10 mg PO HS PRN 12/16/19 12/16/19 History Patient History Medical History Depression (Acute) Dermatitis (Acute) Eczema (Acute) Essential hypertriglyceridemia (Acute) Folliculitis (Acute) Insomnia (Acute) Irritation of left eye (Acute) Left radial head fracture (Acute) Mental disability (Acute) Osteoarthritis of knee (Acute) Otalgia, bilateral (Acute) Schizoaffective disorder (Acute) Seizures Surgical History History of left knee surgery Family History Grandmother Diabetes Grandfather Coronary heart disease Social History Preferred Language: Dutch Communication Ability: Effective 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 Pain with attempted SLRT. Knee ROM 0-45 degrees due to hip pain. No shortening or external rotation noted. Able to actively dorsi/plantar flex foot. Calf soft and supple. Quad tone 4/5. NV intact. No edema, erythema, warmth or palpable deformity appreciated. Neg Log roll. Results & Data ([facility]) Vital Signs (Past 12 Hours) Vital Signs Temp Pulse Resp BP Pulse Ox 02/24/20 07:41 36.8 C 75 16 146/55 H 94 12/17/19 00:26 36.8 C 74 18 138/74 94 Laboratory Results 12/17/19 12/16/19 12/16/19 Range/Units 05:06 21:15 21:07 WBC (4.8-10.8) K/uL RBC (4.7-6.1) M/uL Hgb (14.0-18.0) g/dL Hct (42-52) % MCV (80-100) fL MCH (25-34) pg MCHC (32-36) g/dL RDW Std Deviation (36.4-46.3) fL RDW Coeff of Silvia (11.5-14.5) % Plt Count (130-400) K/uL MPV (7.4-10.4) fL Immature Gran % (Auto) % Neut % (Auto) % Lymph % (Auto) % [place] % (Auto) % Eos % (Auto) % Baso % (Auto) % Immature Gran # (Auto) (0.00-0.02) K/uL Neut # (Auto) (1.4-6.5) K/uL Lymph # (Auto) (1.2-3.4) K/uL [place] # (Auto) (0.11-0.59) K/uL Eos # (Auto) (0-0.5) K/uL Baso # (Auto) (0-0.2) K/uL PT (9.0-12.0) Seconds INR (0.9-1.1) APTT (21.0-31.0) Seconds PTT Ratio Sodium (136-145) mmol/L Potassium (3.5-5.1) mmol/L Chloride (98-107) mmol/L Carbon Dioxide (21-32) mmol/L Anion Gap (3-11) BUN (7-18) mg/dl Creatinine (0.6-1.4) mg/dl Est Cr Clr Drug Dosing Est GFR ( Amer) Est GFR (Non-Af Amer) BUN/Creatinine Ratio (10-20) Glucose (70-99) mg/dl Calcium (8.5-10.1) mg/dl Triglycerides 76 (0-150) mg/dl Cholesterol 162 (0-200) mg/dl LDL Cholesterol, Calc 96 mg/dl VLDL Cholesterol, Calc 15 mg/dl HDL Cholesterol 51 mg/dl Cholesterol/HDL Ratio 3 Urine Color Yellow Urine Appearance Clear (Clear) Urine pH 7.0 (4.5-7.5) Ur Specific [place] 1.010 (1.000-1.030) Urine Protein Negative (Negative) Urine Glucose (UA) Negative (Negative) Urine Ketones Negative (Negative) Urine Blood Negative (Negative) Urine Nitrite Negative (Negative) Urine Bilirubin Negative (Negative) Urine Urobilinogen Negative (Negative) Ur Leukocyte Esterase Negative (Negative) Blood Type B Positive Antibody Screen NEGATIVE 12/16/19 12/16/19 12/16/19 Range/Units 20:55 20:55 20:55 WBC 12.45 H (4.8-10.8) K/uL RBC 4.96 (4.7-6.1) M/uL Hgb 15.8 (14.0-18.0) g/dL Hct 44.9 (42-52) % MCV 90.5 (80-100) fL MCH 31.9 (25-34) pg MCHC 35.2 (32-36) g/dL RDW Std Deviation 40.8 (36.4-46.3) fL RDW Coeff of Silvia 12.4 (11.5-14.5) % Plt Count 139 (130-400) K/uL MPV 9.1 (7.4-10.4) fL Immature Gran % (Auto) 0.2 % Neut % (Auto) 91.2 % Lymph % (Auto) 4.7 % [place] % (Auto) 3.7 % Eos % (Auto) 0.1 % Baso % (Auto) 0.1 % Immature Gran # (Auto) 0.03 H (0.00-0.02) K/uL Neut # (Auto) 11.36 H (1.4-6.5) K/uL Lymph # (Auto) 0.58 L (1.2-3.4) K/uL [place] # (Auto) 0.46 (0.11-0.59) K/uL Eos # (Auto) 0.01 (0-0.5) K/uL Baso # (Auto) 0.01 (0-0.2) K/uL PT 12.2 H (9.0-12.0) Seconds INR 1.2 H (0.9-1.1) APTT 25.9 (21.0-31.0) Seconds PTT Ratio 1.0 Sodium 138 (136-145) mmol/L Potassium 4.1 (3.5-5.1) mmol/L Chloride 104 (98-107) mmol/L Carbon Dioxide 27 (21-32) mmol/L Anion Gap 6.0 (3-11) BUN 15 (7-18) mg/dl Creatinine 1.21 (0.6-1.4) mg/dl Est Cr Clr Drug Dosing Not Reportable Est GFR ( Amer) 79.9 Est GFR (Non-Af Amer) 68.9 BUN/Creatinine Ratio 12.6 (10-20) Glucose 117 H (70-99) mg/dl Calcium 9.1 (8.5-10.1) mg/dl Triglycerides (0-150) mg/dl Cholesterol (0-200) mg/dl LDL Cholesterol, Calc mg/dl VLDL Cholesterol, Calc mg/dl HDL Cholesterol mg/dl Cholesterol/HDL Ratio Urine Color Urine Appearance (Clear) Urine pH (4.5-7.5) Ur Specific [place] (1.000-1.030) Urine Protein (Negative) Urine Glucose (UA) (Negative) Urine Ketones (Negative) Urine Blood (Negative) Urine Nitrite (Negative) Urine Bilirubin (Negative) Urine Urobilinogen (Negative) Ur Leukocyte Esterase (Negative) Blood Type Antibody Screen
--- NOTE | 2019-12-17 11:00 | Hospitalist Progress Note ---
Date of Service December 17, 2019 Assessment & Plan (1) Closed fracture of neck of right femur: * XRAY - Closed right femoral neck fracture * Keep NPO for procedure today * NSS + 20MEQ KCl @ 100mL/hr * Pain control with tylenol, norco prn, morphine * Orthopedic consult-- appreciate input --> plan for ORIF with Dr. Berry today (12/17). Pre-op H/h 15.8/44.9 * Monitor CBC in AM (2) Essential hypertriglyceridemia: * On no noted treatment. Repeated lipid panel * Well controlled --> triglycerides 76, cholesterol 162, LDL 96, HDL 51 (3) Depression: * Depression/schizoaffective disorder/mental disability/seizure disorder * Continue Zyprexa, benztropine, carbamazepine, Seroquel, risperidone, sertraline and zaleplon. (4) Schizoaffective disorder: * See above (5) Mental disability: * See above -- patient disabled, but lives at home with girlfriend (6) Seizures: * See above (7) Eczema: * Continue usual topical agents. (8) DVT prophylaxis: * SCDs * Hold chemoprophylaxis in setting of planned OR today Dispo: PT/OT per surgery, with possible outpatient therapy at patient request. CM to arrange. Admission and Anticipated Discharge Date Admission Date: December 16, 2019 Supervising Physician Co-Signing Physician Notes PA Supervision Note: I did not personally see or examine the patient today, but I verified all mcqueen points of FANNY Benson's assessment and plan with the following exceptions/additions: Chart reviewed, ECG unremarkable, able to play basketball and achieve at least 4 METS. At average perioperative CV risk for surgery and should proceed. Subjective Patient states his pain is controlled, and that is goal is to be discharged home following surgery. He states he would be willing to do outpatient physical therapy. He states if anyone needs to contact family regarding procedure, please contact his mother Carlene. TAMERA with updated information. Patient states he was doing drills with basketball with his onsite health coach yesterday and he came down on his leg funny and since that time has had discomfort. Patient had been utilizing crutches that he had previously fitted for himself following knee surgery with Dr. Najera in the past. Patient states he took his girlfriend swimming last night and the pain in his right hip/groin got to a point that he was no longer able to tolerate it and came to the emergency room. Denies any chest pain, shortness of breath, fever, chills, nausea, vomiting, diarrhea, constipation, or other symptoms at this time. Review of Systems Review of Systems: All systems reviewed & are unremarkable except as noted in HPI & below Physical Exam Constitutional: WD/WN, vitals as above + obese; no acute distress Eyes: + anicteric sclerae and PERRL ENMT: external ear and nose normal, oropharynx normal Neck: trachea midline, no thyromegaly Respiratory: normal respiratory effort, lungs clear to auscultation Auscultation: + diminished lung sounds Cardiovascular: RRR, no murmur, no edema 2+ dp, pt bilaterally Gastrointestinal (Abdomen): normal bowel sounds, soft, nontender, no hepatosplenomegaly Musculoskeletal: no cyanosis or clubbing, extremities motor strength 5/5 R hip tender to palpation anterior and lateral aspect of hip. Pain with AROM. NVI. 4/5 strength RLE. Calves nontender bilaterally Skin: no rashes, warm and dry Neurologic: PERRL, EOMI, accommodation nl, no face palsy, no dysarthria Psychiatric: Orientation: alert and oriented x 3 Lymphatic: no cervical or axillary lymphadenopathy Results & Data ([facility] [place]) Vital Signs (Past 12 Hours) Vital Signs Temp Pulse Resp BP Pulse Ox 12/17/19 07:41 36.8 C 75 16 146/55 H 94 12/17/19 00:26 36.8 C 74 18 138/74 94 Laboratory Results 12/17/19 12/16/19 12/16/19 Range/Units 05:06 21:15 21:07 WBC (4.8-10.8) K/uL RBC (4.7-6.1) M/uL Hgb (14.0-18.0) g/dL Hct (42-52) % MCV (80-100) fL MCH (25-34) pg MCHC (32-36) g/dL RDW Std Deviation (36.4-46.3) fL RDW Coeff of Silvia (11.5-14.5) % Plt Count (130-400) K/uL MPV (7.4-10.4) fL Immature Gran % (Auto) % Neut % (Auto) % Lymph % (Auto) % [place] % (Auto) % Eos % (Auto) % Baso % (Auto) % Immature Gran # (Auto) (0.00-0.02) K/uL Neut # (Auto) (1.4-6.5) K/uL Lymph # (Auto) (1.2-3.4) K/uL [place] # (Auto) (0.11-0.59) K/uL Eos # (Auto) (0-0.5) K/uL Baso # (Auto) (0-0.2) K/uL PT (9.0-12.0) Seconds INR (0.9-1.1) APTT (21.0-31.0) Seconds PTT Ratio Sodium (136-145) mmol/L Potassium (3.5-5.1) mmol/L Chloride (98-107) mmol/L Carbon Dioxide (21-32) mmol/L Anion Gap (3-11) BUN (7-18) mg/dl Creatinine (0.6-1.4) mg/dl Est Cr Clr Drug Dosing Est GFR ( Amer) Est GFR (Non-Af Amer) BUN/Creatinine Ratio (10-20) Glucose (70-99) mg/dl Calcium (8.5-10.1) mg/dl Triglycerides 76 (0-150) mg/dl Cholesterol 162 (0-200) mg/dl LDL Cholesterol, Calc 96 mg/dl VLDL Cholesterol, Calc 15 mg/dl HDL Cholesterol 51 mg/dl Cholesterol/HDL Ratio 3 Urine Color Yellow Urine Appearance Clear (Clear) Urine pH 7.0 (4.5-7.5) Ur Specific [place] 1.010 (1.000-1.030) Urine Protein Negative (Negative) Urine Glucose (UA) Negative (Negative) Urine Ketones Negative (Negative) Urine Blood Negative (Negative) Urine Nitrite Negative (Negative) Urine Bilirubin Negative (Negative) Urine Urobilinogen Negative (Negative) Ur Leukocyte Esterase Negative (Negative) Blood Type B Positive Antibody Screen NEGATIVE 12/16/19 12/16/19 12/16/19 Range/Units 20:55 20:55 20:55 WBC 12.45 H (4.8-10.8) K/uL RBC 4.96 (4.7-6.1) M/uL Hgb 15.8 (14.0-18.0) g/dL Hct 44.9 (42-52) % MCV 90.5 (80-100) fL MCH 31.9 (25-34) pg MCHC 35.2 (32-36) g/dL RDW Std Deviation 40.8 (36.4-46.3) fL RDW Coeff of Silvia 12.4 (11.5-14.5) % Plt Count 139 (130-400) K/uL MPV 9.1 (7.4-10.4) fL Immature Gran % (Auto) 0.2 % Neut % (Auto) 91.2 % Lymph % (Auto) 4.7 % [place] % (Auto) 3.7 % Eos % (Auto) 0.1 % Baso % (Auto) 0.1 % Immature Gran # (Auto) 0.03 H (0.00-0.02) K/uL Neut # (Auto) 11.36 H (1.4-6.5) K/uL Lymph # (Auto) 0.58 L (1.2-3.4) K/uL [place] # (Auto) 0.46 (0.11-0.59) K/uL Eos # (Auto) 0.01 (0-0.5) K/uL Baso # (Auto) 0.01 (0-0.2) K/uL PT 12.2 H (9.0-12.0) Seconds INR 1.2 H (0.9-1.1) APTT 25.9 (21.0-31.0) Seconds PTT Ratio 1.0 Sodium 138 (136-145) mmol/L Potassium 4.1 (3.5-5.1) mmol/L Chloride 104 (98-107) mmol/L Carbon Dioxide 27 (21-32) mmol/L Anion Gap 6.0 (3-11) BUN 15 (7-18) mg/dl Creatinine 1.21 (0.6-1.4) mg/dl Est Cr Clr Drug Dosing Not Reportable Est GFR ( Amer) 79.9 Est GFR (Non-Af Amer) 68.9 BUN/Creatinine Ratio 12.6 (10-20) Glucose 117 H (70-99) mg/dl Calcium 9.1 (8.5-10.1) mg/dl Triglycerides (0-150) mg/dl Cholesterol (0-200) mg/dl LDL Cholesterol, Calc mg/dl VLDL Cholesterol, Calc mg/dl HDL Cholesterol mg/dl Cholesterol/HDL Ratio Urine Color Urine Appearance (Clear) Urine pH (4.5-7.5) Ur Specific [place] (1.000-1.030) Urine Protein (Negative) Urine Glucose (UA) (Negative) Urine Ketones (Negative) Urine Blood (Negative) Urine Nitrite (Negative) Urine Bilirubin (Negative) Urine Urobilinogen (Negative) Ur Leukocyte Esterase (Negative) Blood Type Antibody Screen Diagnostic Findings 12/16/19 CXR IMPRESSION: No acute process. Femur, Hip, Pelvis XRAY FINDINGS: No fracture or dislocation within the pelvis or left hip. The sacrum appears intact. Slightly impacted right femoral neck fracture. The mid to distal femur is intact. IMPRESSION: Slightly impacted right femoral neck fracture. ECG Additional Comments: EKG 71bpm, NSR, possible LAE. Borderline EKG. No significant changed from EKG 11/17/2010 PG Care Time/CCT Total # of Minutes Spent Total Time Spent with Patient: Total time spent is greater than 50% in coordination of care (as documented) at patient's floor/unit and/or counseling patient: Coding Level of Care Code 59745 Subseq Hosp Care Lvl 2 Diagnoses Closed fracture of neck of right femur S72.001A Essential hypertriglyceridemia E78.1 Depression F32.9 Schizoaffective disorder F25.9 Mental disability F79 Seizures R56.9 Eczema L30.9 DVT prophylaxis Z29.9
[2019-12-17] MEDS ORDERED: MIDAZOLAM HCL 1 MG/ML 2ML VIAL ONE ×2 (12:34→14:54)
[2019-12-17] MEDS ORDERED: fentaNYL citrate 100 MCG/2 ML VIAL ONE (12:34)
--- NOTE | 2019-12-17 13:05 | Anesthesiology Consultation ---
Date of Service December 17, 2019 Assessment & Plan (1) Encounter for pre-operative examination: Chart Review Chart Review: Acceptable Risk for Surgery and Patient NOT seen in Pre Admission Testing Consults Requested none ASA ASA3 Proposed Anesthesia Anesthesia Type: MAC Spinal Risk / Benefits Reviewed With: PT / POA / Parent / Guardian, Accepts Plan and Informed Consent Obtained History Surgery Operation Date: 12/17/19 07:50 Proposed Procedures p ORIF Dynamic Hip Screw - Dennys Berry MD Height/Weight Height: 6 ft 6 in Weight: 141.8 kg Allergies Allergy/AdvReac Type Severity Reaction Status Date / Time No Known Allergies Allergy Verified 12/16/19 20:11 Medications Home Medications Medication Instructions Recorded Confirmed Last Taken aripiprazole 15 mg tablet 15 mg PO DAILY tab 07/24/19 12/16/19 12/16/19 benztropine 1 mg tablet 1 mg PO QAM tab 07/24/19 12/16/19 12/16/19 carbamazepine 400 mg 400 mg PO BID tab 07/24/19 12/16/19 12/16/19 08:00 tablet,extended release,12 hr clindamycin phosphate 1 % topical 1 appln TOPICAL .COMPLEX ml 07/24/19 12/16/19 12/16/19 08:00 solution fluocinonide 0.05 % topical 1 appln TOPICAL .COMPLEX gm 07/24/19 12/16/19 12/16/19 08:00 ointment hydrocortisone 1 % topical ointment 1 appln TOPICAL .COMPLEX gm 07/24/19 12/16/19 12/16/19 08:00 risperidone 3 mg tablet 3 mg PO HS tab 07/24/19 12/16/19 12/15/19 sertraline 25 mg tablet 25 mg PO HS tab 07/24/19 12/16/19 12/15/19 triamcinolone acetonide 0.1 % 1 appln TOPICAL .COMPLEX 07/24/19 12/16/19 12/16/19 08:00 topical cream quetiapine 100 mg PO HS 12/16/19 12/16/19 12/15/19 zaleplon 10 mg PO HS PRN 12/16/19 12/16/19 Unknown Active Medications Generic Name Dose Route Start Last Admin Trade Name Freq PRN Reason Stop Dose Admin Hydrocodone Bitart/Acetaminophen 1 tab 12/16/19 22:28 12/17/19 06:07 [place] 5/325 PO 12/30/19 22:27 1 tab Q4H PRN Administration Moderate Pain Aripiprazole 15 mg 12/17/19 09:00 12/17/19 08:27 Abilify PO 01/16/20 08:59 15 mg DAILY SALOMON Administration Benztropine Mesylate 1 mg 12/17/19 09:00 12/17/19 08:27 Cogentin PO 01/16/20 08:59 1 mg QAM SALOMON Administration Carbamazepine 400 mg 12/16/19 22:28 12/17/19 08:28 Tegretol Xr PO 01/15/20 22:27 400 mg BID SALOMON Administration Fluocinonide 1 appln 12/16/19 22:28 12/17/19 08:29 Lidex 0.5% EXT 01/15/20 22:27 Not Given BID SALOMON Hydrocortisone 1 appln 12/16/19 22:28 12/17/19 08:29 Hydrocortisone 1% EXT 01/15/20 22:27 Not Given BID SALOMON Potassium Chloride/Sodium Chloride 20 meq in 1,000 mls @ 100 mls/hr 12/16/19 22:28 12/17/19 08:27 Normal Saline W/20 Meq Kcl IV 01/15/20 22:27 100 mls/hr .Q10H SALOMON Administration Quetiapine Fumarate 100 mg 12/17/19 21:00 12/16/19 22:56 Seroquel PO 01/16/20 20:59 100 mg HS SALOMON Administration Risperidone 3 mg 12/17/19 21:00 12/16/19 22:56 Risperdal PO 01/16/20 20:59 3 mg HS SALOMON Administration Triamcinolone Acetonide 1 appln 12/16/19 22:28 12/17/19 08:29 Kenalog 0.1% TOP 01/15/20 22:27 Not Given BID SALOMON NPO Date Last Intake of Fluids: 12/16/19 Time Last Intake of Fluids: 15:00 Date Last Intake of Solids: 12/16/19 Time Last Intake of Solids: 15:00 Past Medical History Medical History Depression (Acute) Dermatitis (Acute) Eczema (Acute) Essential hypertriglyceridemia (Acute) Folliculitis (Acute) Insomnia (Acute) Irritation of left eye (Acute) Left radial head fracture (Acute) Mental disability (Acute) Osteoarthritis of knee (Acute) Otalgia, bilateral (Acute) Schizoaffective disorder (Acute) Seizures Exercise / Class Metabolic Activity II 4-5 Yardwork/Stairs/Walk up hill Past Family History Family History Grandmother Diabetes Grandfather Coronary heart disease Past Surgical History Surgical History History of left knee surgery Past Anesthesia History No Hx of Anesthesia Complications and No Family Hx of Anesthesia Complications History of PONV No Hx of PONV and No Hx of Motion Sickness Social History Smoking Status: Never smoker Do You Dip or Chew Tobacco: No Hx Alcohol Use: No Hx Substance Use: No Physical Exam Vital Signs Last Vital Signs Temp 37.3 C 12/17/19 12:26 Pulse 74 12/17/19 12:26 Resp 16 12/17/19 12:26 BP 133/65 12/17/19 12:26 Pulse Ox 95 12/17/19 12:26 ENMT Mouth: no dentition abnormality Thyromental Distance: > or= 3.5 Finger Breadths Mallampati Class: II Neck normal visual inspection Respiratory normal respiratory effort Auscultation: lungs clear to auscultation bilaterally Cardiovascular Rate/Rhythm: regular rate and regular rhythm Psychiatric Orientation: alert Testing Laboratory Results 12/16/19 20:55 12/16/19 20:55 PT 12.2 Seconds (9.0-12.0) H 12/16/19 20:55 INR 1.2 (0.9-1.1) H 12/16/19 20:55 APTT 25.9 Seconds (21.0-31.0) 12/16/19 20:55 Urine Color Yellow 12/16/19 21:15 Urine Appearance Clear (Clear) 12/16/19 21:15 Urine pH 7.0 (4.5-7.5) 12/16/19 21:15 Ur Specific [place] 1.010 (1.000-1.030) 12/16/19 21:15 Urine Protein Negative (Negative) 12/16/19 21:15 Urine Glucose (UA) Negative (Negative) 12/16/19 21:15 Urine Ketones Negative (Negative) 12/16/19 21:15 Urine Nitrite Negative (Negative) 12/16/19 21:15 Ur Leukocyte Esterase Negative (Negative) 12/16/19 21:15 Blood Type B Positive 12/16/19 21:07 Antibody Screen NEGATIVE 12/16/19 21:07
[2019-12-17] MEDS ORDERED: CEFAZOLIN 3000MG/72.5 ML BAG IV ONE (13:12)
[2019-12-17] MEDS ORDERED: CEFAZOLIN 3000MG 72.5 ML IV ONE ×2 (13:16→14:25)
[2019-12-17] MEDS ORDERED: ePHEDrine sulfate 50 MG/ML AMP IV PRN (13:47)
[2019-12-17] MEDS ORDERED: ONDANSETRON INJ 2 MG/ML 2 ML VIAL IV PRN (13:47)
[2019-12-17] MEDS ORDERED: fentaNYL citrate 100 MCG/2 ML VIAL IV PRN (13:47)
[2019-12-17] MEDS ORDERED: ATROPINE SULFATE 0.1 MG/ML 10ML SYR IV PRN (13:47)
[2019-12-17] MEDS ORDERED: LIDOCAINE HCL 2% 2 ML VIAL/AMP(20MG/ML) INFIL ONE (14:18)
[2019-12-17] MEDS ORDERED: ONDANSETRON INJ 2 MG/ML 2 ML VIAL ONE (14:18)
[2019-12-17] MEDS ORDERED: PROPOFOL IV EMULSION 10 MG/ML 20 ML VIAL IV ONE ×2 (14:18→15:33)
--- NOTE | 2019-12-17 15:23 | Fluoroscopy Report ---
FL hip RT 2-3V CLINICAL HISTORY: Right hip fracture COMPARISON STUDY: 12/16/2019 FLUOROSCOPY TIME: 111 seconds. NUMBER OF FLUOROSCOPIC IMAGES: 4 FINDINGS: 4 intraoperative fluoroscopic spot images reveal internal fixation of a subcapital right hi p fracture with interlocking femoral neck screw. In addition a second cannulated screw traversing the femoral neck is visualized. IMPRESSION: Internally fixated right hip fracture. ACT 112: Negative or not required by law. Electronically signed by: Dirk Vital M.D. 12/17/2019 3:22 PM
--- NOTE | 2019-12-17 15:36 | Post Operative Brief Note ---
Immediate Post Op Note v1 Date of Surgery December 17, 2019 Pre & Post Diagnosis Operation Date: 12/17/19 07:50 Pre-Op Diagnosis: CLOSED RIGHT FEMORAL NECK FRACTURE Post-Op Diagnosis: CLOSED RIGHT FEMORAL NECK FRACTURE I identified the patient and participated in the time-out.: Yes Procedure Operation Date: 12/17/19 07:50 Actual Procedures p Open Reduction Internal Fixation with Dynamic Hip Screw, Right Hip(Right) - Dennys Berry MD Surgeon Dennys Berry MD Sock Liner ELIZABETH Franco PA-C Estimated Blood Loss 200 Findings Consistent with Post-Op Diagnosis Fluids 1000 cc Drains Saenz Catheter (arrived with saenz in place and draining clear, yellow urine, to gravity drain. monitored by anesthesia for duration of procedure. remains in place on transfer to PACU) Anesthesia Type Spinal MAC Complications none Disposition Accompanied Patient To Recovery: No Disposition: Recovery Room
[2019-12-17] MEDS ORDERED: NALOXONE HCL 0.4 MG/1 ML VIAL/CARP IV PRN (15:49)
--- NOTE | 2019-12-17 15:49 | Operative Report ---
Post Operative Report Pre & Post Diagnosis Operation Date: 12/17/19 07:50 Pre-Op Diagnosis: CLOSED RIGHT FEMORAL NECK FRACTURE Post-Op Diagnosis: CLOSED RIGHT FEMORAL NECK FRACTURE I identified the patient and participated in the time-out.: Yes Procedure Operation Date: 12/17/19 07:50 Actual Procedures p Open Reduction Internal Fixation with Dynamic Hip Screw, Right Hip(Right) - Dennys Berry MD Surgeon Dennys Berry MD Sub Plant Manager ELIZABETH Franco PA-C Estimated Blood Loss 200 Findings Consistent with Post-Op Diagnosis Specimens none Complications none Disposition Accompanied Patient To Recovery: Yes Disposition: Recovery Room Description of Procedure I was present during the entire procedure assisting with retraction, wound closure and dressing application. Please see Dr. Berry procedure note for specifics of the case. I attest to the content of the Intraoperative Record and any orders documented therein. Any exceptions are noted below.
[2019-12-17] MEDS ORDERED: SODIUM CHLORIDE 0.9% 1000ML 1,000 ML IV SCH (16:00)
--- NOTE | 2019-12-17 16:05 | Anesthesiology Progress Note ---
Date of Service December 17, 2019 Anesthesia Post Procedure Vital Signs Vital Signs: Temp Pulse Pulse Pulse Resp BP BP 12/17/19 15:55 67 18 97/62 L 12/17/19 15:46 36.6 C 78 13 92/58 L 12/17/19 12:26 37.3 C 74 16 133/65 12/17/19 07:41 36.8 C 75 16 146/55 H 12/17/19 00:26 36.8 C 74 18 138/74 12/16/19 22:06 12/16/19 22:02 75 123/70 12/16/19 19:05 36.8 C 74 18 109/73 Pulse Ox 12/17/19 15:55 98 12/17/19 15:46 95 12/17/19 12:26 95 12/17/19 07:41 94 12/17/19 00:26 94 12/16/19 22:06 98 12/16/19 22:02 98 12/16/19 19:05 95 Pain Intensity Right Hip: Pain Intensity: 9 Transfer of Care Handoff Completed per policy Notes Mental Status: alert / awake / arousable Patient Amnestic to Procedure: Yes Nausea / Vomiting: adequately controlled Pain: adequately controlled Airway Patency, RR, SpO2: stable & adequate BP & HR: stable & adequate Hydration State: stable & adequate Anesthetic Complications: no major complications apparent
--- NOTE | 2019-12-17 16:15 | Operative Report (OR) ---
DATE OF OPERATION: 12/17/2019 PREOPERATIVE DIAGNOSIS: Valgus impacted right femoral neck fracture. POSTOPERATIVE DIAGNOSIS: Valgus impacted right femoral neck fracture. OPERATION PERFORMED: Open reduction and internal fixation of right valgus impacted femoral neck fracture. SURGEON: Dennys Berry MD. WIRE STRAIGHTENING MACHINE OPERATOR: Camron Franco PA-C. ESTIMATED BLOOD LOSS: 200 mL. INTRAVENOUS FLUIDS: 1000 mL of crystalloid. SPECIMENS: None. COMPLICATIONS: None. IMPLANTS: 1. Synthes 4-hole DHS plate 135-degree angle and a 4-hole short barrel. 2. One DHS lag screw 115 mm in length. 3. Four 4.5 mm cortical screws, measuring 40, 44, 46 and 50 mm respectively. 4. One 6.5 mm cannulated screw. INDICATIONS: Mr. Antonio is a 49-year-old male with medical history significant for a mental illness. He was playing basketball yesterday when he fell onto his right hip and had immediate onset of hip pain. He presented to the Emergency Room last night where x-rays were obtained demonstrating a valgus impacted femoral neck fracture. I had a long discussion with him about the risks and benefits of surgery, alternatives to surgery and expected outcomes. After reviewing all these, he elected to proceed with surgery. All questions were answered. Informed consent was signed. OPERATIVE FINDINGS: Due to the patient's size of over 300 pounds, I elected to fix this with a DHS screw as well as a derotational screw. Excellent fixation was obtained. DESCRIPTION OF THE OPERATION: The patient was identified in the preoperative holding area where the surgical site was marked. He was brought back to main operating room where he was carefully rolled onto his side and a spinal anesthetic was placed by anesthesia. He was then moved onto the operating room fracture table. All bony prominences were padded. The nonoperative leg was placed in abduction and flexion to allow for the C-arm to come between the legs. The C-arm was used to check our reduction, which was unchanged from his films done last night in the Emergency Room. Again, there was a valgus impaction of the fracture, but no displacement on the lateral view. The leg was then prepped and draped in the normal sterile fashion. Prior to incision, a multidisciplinary timeout was called. All in the room were in agreement. We began by making a 10 cm incision starting at the vastus ridge and extending distally. We dissected down through subcutaneous tissues to the level of the fascia. Subcutaneous tissues were lifted off the fascia to facilitate closure. We then incised through the fascia in line with the incision. The vastus lateralis muscle was then identified and was lifted off the intermuscular septum. Hohmann retractors were placed followed by Warren retractors to expose the lateral aspect of the femur. Subperiosteal dissection was used. We then brought in our C-arm. The guidewire for a 7.3 cannulated screw was then placed. We then used a 135-degree angle guide in the lateral aspect of the femur and used this to place our wire for the DHS screw up into the center-center position of the femoral head. Once this wire was in place, we decided to take out the first wire and replaced it with a different wire that would end up more superiorly in the femoral head to give us a wider spread. This was done without difficulty. We then measured the length of our cannulated screw. This came to a length of 115 mm. We then drilled for a cannulated screw and placed a 6.5 mm cannulated screw without difficulty. Excellent fixation was obtained. Next, we measured our DHS screw. It came to 125 mm, so we elected to use 115 mm screw. We then set the drill on 120 mm and used this to ream up into the femoral head. We then removed the drill and placed the 150 mm DHS lag screw up into the femoral head. The patient had extremely hard bone and an incredible bite. We did get all the threads past the fracture site, however. We ended the screw so that the screw handle was roughly parallel to the femoral shaft. We then slid the plate down on to the femur. This was a 4-hole DHS plate 135 degree angle with a short barrel. We then tamped the plate down over the top of the screw. Once this was complete, we then placed four 4.5 mm cortical screws to suck the plate down to the bone. Excellent fixation was obtained. At this point, our final fluoroscopic images were obtained in both AP and lateral views. We were happy with our screw lengths on all views. The plate was appropriately positioned on the femur. The wound was then irrigated with copious amounts of normal saline and we began to close. The fascia was run with a #1 Vicryl. The subcutaneous layer was closed with a running 2-0 Vicryl. The deep dermal layer was closed with running 2-0 Vicryl. Stapler was used for the skin. A sterile dressing was applied. This was Xeroform, 4 x 4 and Tegaderm. This was covered with a 6-inch Jamal wrap. He then had his sedation lifted, was transferred to the hospital bed and then transferred to the recovery room in stable condition. POSTOPERATIVE COURSE: The patient will be readmitted to the hospital. We will place him on Lovenox for DVT prophylaxis starting tomorrow morning. He can weightbear as tolerated on this with a walker for assistance. X-rays are pending in the recovery room. I attest to the content of the Intraoperative Record and any orders documented therein. Any exceptions are noted below. WAGNER
--- NOTE | 2019-12-17 16:21 | XRay Report ---
XR hip RT min 2V CLINICAL HISTORY: Post-Operative implant position COMPARISON STUDY: Right hip 12/16/2019. FINDINGS: Interval placement of a dynamic hip screw and a single cannulated screw through the femoral neck fracture. Alignment appears near anatomic. The heart appears intact. No dislocation. Skin stapl es are in place. IMPRESSION: Status post internal fixation of a right femoral neck fracture. The hardware appears int act. ACT 112: Negative or not required by law. Electronically signed by: Matt Newell M.D. 12/17/2019 4:19 PM
[2019-12-17] MEDS ORDERED: SERTRALINE HCL 50 MG TABLET PO SCH (21:00)
[2019-12-17] MEDS: risperiDONE 3 MG TABLET PO SCH (21:50)
[2019-12-17] MEDS: QUETIAPINE FUMARATE 100 MG TABLET PO SCH (21:50)
[2019-12-18] MEDS: NSS + 20MEQ KCL 20 MEQ/1,000 ML BAG IV SCH (03:53)
[2019-12-18 06:10] LABS: Basophils # (auto) 0.02 K/uL (0-0.2); Basophils % (auto) 0.3 %; Eosinophils # (auto) 0.32 K/uL (0-0.5); Eosinophils % (auto) 4.2 %; Hematocrit (blood only) 35.7 % (42-52); Hemoglobin 12.6 g/dL (14.0-18.0); Immature Granulocytes # (auto) 0.04 K/uL (0.00-0.02); Immature Granulocytes % (auto) 0.5 %; Lymphocytes % (auto) 15.6 %; Mean Corpuscular Hemoglobin 32.1 pg (25-34); Mean Corpuscular Hgb Conc 35.3 g/dL (32-36); Mean Corpuscular Volume 90.8 fL (80-100); Mean Platelet Volume 8.7 fL (7.4-10.4); Monocytes # (auto) 0.58 K/uL (0.11-0.59); Monocytes % (auto) 7.5 %; Neutrophils # (auto) 5.54 K/uL (1.4-6.5); Neutrophils % (auto) 71.9 %; Platelet Count 130 K/uL (130-400); RDW Coefficient of Variation 12.1 % (11.5-14.5); RDW Standard Deviation 40.7 fL (36.4-46.3); Red Blood Count 3.93 M/uL (4.7-6.1)
[2019-12-18 06:35] LABS: Albumin Level 2.9 gm/dl (3.4-5.0); BUN Creatinine Ratio 15.3 (10-20); Calcium 7.8 mg/dl (8.5-10.1); Creatinine Clr Calc Pharmacy 137.9 ml/min; Est GFR (African American) 100.6; Est GFR (Non-African American) 86.8; Potassium 4.1 mmol/L (3.5-5.1)
[2019-12-18 06:38] LABS: Albumin Globulin Ratio 0.9 (0.9-2); Globulin 3.2 gm/dl (2.5-4.0); Total Protein 6.1 gm/dl (6.4-8.2)
--- NOTE | 2019-12-18 07:54 | Anesthesiology Progress Note ---
Date of Service December 18, 2019 Anesthesia Post Procedure Vital Signs Vital Signs: Temp Pulse Pulse Resp BP Pulse Ox 12/18/19 07:13 37.3 C 73 17 128/74 96 12/18/19 03:50 37.0 C 71 20 113/72 96 12/17/19 23:19 37.6 C H 72 20 107/70 93 12/17/19 19:50 84 16 102/61 93 12/17/19 18:43 36.6 C 81 18 133/74 98 12/17/19 17:32 36.8 C 90 20 107/59 L 97 12/17/19 17:00 36.7 C 89 18 111/62 98 12/17/19 16:30 36.5 C 81 18 121/56 L 100 12/17/19 16:15 36.8 C 72 17 99/55 L 100 12/17/19 16:05 80 16 108/48 L 98 12/17/19 15:55 67 18 97/62 L 98 12/17/19 15:46 36.6 C 78 13 92/58 L 95 12/17/19 12:26 37.3 C 74 16 133/65 95 Pain Intensity Right Hip: Pain Intensity: 9 Notes Mental Status: alert / awake / arousable and participated in evaluation Patient Amnestic to Procedure: Yes Nausea / Vomiting: adequately controlled Pain: adequately controlled Airway Patency, RR, SpO2: stable & adequate BP & HR: stable & adequate Hydration State: stable & adequate Neuraxial Anesthesia: was administered and sensory block resolved Anesthetic Complications: no major complications apparent and Pt Satisfied with anesthetic care
[2019-12-18] MEDS: HYDROCORTISONE 1% CRM 30 GM TUBE EXT SCH (08:32)
[2019-12-18] MEDS: TRIAMCINOLONE ACET 0.1% CR 15 GM TUBE TOP SCH (08:32)
[2019-12-18] MEDS: FLUOCINONIDE 0.05% OINT 15 GM TUBE EXT SCH (08:32)
[2019-12-18] MEDS: BENZTROPINE MESYLATE 1 MG TAB PO SCH (08:33)
[2019-12-18] MEDS: CARBAMAZEPINE 200 MG TABCR PO SCH (08:33)
[2019-12-18] MEDS: ARIPiprazole 15 MG TAB PO SCH (08:33)
[2019-12-18] MEDS ORDERED: RIVAROXABAN 10 MG TABLET PO SCH (09:00)
[2019-12-18] MEDS ORDERED: ENOXAPARIN INJ 40 MG/0.4 ML SYR SQ SCH (09:00)
--- NOTE | 2019-12-18 09:37 | Orthopedic Progress Note ---
Date of Service December 18, 2019 Assessment & Plan (1) Closed fracture of neck of right femur: PT/OT WBAT with walker assistance Keep dressing in place Ice with EZ wrap Pain controlled with PO Meds (Will send Rx for [place] to patient's pharmacy) TEDs and SQ Lovenox 40 mg daily for 2 wks post op; then Aspirin 81 mg PO BID for an additional 2 wks (will send Rx for Lovenox to patient's pharmacy) Discharge deferred to [facility] service, but orthopedically cleared Follow up at [facility] in 2 weeks for staple removal (Appt is with Nkechi Franco PA-C on TuesdayDecember 30 @ 10 AM) With questions call . Admission and Anticipated Discharge Date Admission Date: December 16, 2019 Subjective This 49 yo M is day 1 s/p ORIF of Right femoral neck fracture. Patient states that he is doing well and that his pain is well controlled with PO meds. He is currently sitting on the edge of his bed getting ready for PT. States that he was able to ambulate up the [place]udero last evening after his block wore off. Currently he denies CP, SOB, nausea, vomiting, fever, chills, sweats, lethargy or numbness/tingling in his Right LE. Review of Systems Review of Systems: All systems reviewed & are unremarkable except as noted in Subjective Physical Exam Physical Exam: Right leg: Dressing clean, dry and intact. Minimally TTP around incision site. Knee ROM 2-95. Able to perform SLRT. Able to actively dorsi/plantar flex foot. Calf soft and supple. Neg log roll. Passive Hip flexion to 80 degrees. Quad strength 3/5. NV intact in Rt LE. Results & Data ([facility]) Vital Signs (Past 12 Hours) Vital Signs Temp Pulse Resp BP Pulse Ox 12/18/19 07:13 37.3 C 73 17 128/74 96 12/18/19 03:50 37.0 C 71 20 113/72 96 12/17/19 23:19 37.6 C H 72 20 107/70 93 Laboratory Results 12/18/19 12/18/19 Range/Units 05:38 05:38 WBC 7.70 (4.8-10.8) K/uL RBC 3.93 L (4.7-6.1) M/uL Hgb 12.6 L D (14.0-18.0) g/dL Hct 35.7 L (42-52) % MCV 90.8 (80-100) fL MCH 32.1 (25-34) pg MCHC 35.3 (32-36) g/dL RDW Std Deviation 40.7 (36.4-46.3) fL RDW Coeff of Silvia 12.1 (11.5-14.5) % Plt Count 130 (130-400) K/uL MPV 8.7 (7.4-10.4) fL Immature Gran % (Auto) 0.5 % Neut % (Auto) 71.9 % Lymph % (Auto) 15.6 % Desha % (Auto) 7.5 % Eos % (Auto) 4.2 % Baso % (Auto) 0.3 % Immature Gran # (Auto) 0.04 H (0.00-0.02) K/uL Neut # (Auto) 5.54 (1.4-6.5) K/uL Lymph # (Auto) 1.20 (1.2-3.4) K/uL Desha # (Auto) 0.58 (0.11-0.59) K/uL Eos # (Auto) 0.32 (0-0.5) K/uL Baso # (Auto) 0.02 (0-0.2) K/uL Sodium 136 (136-145) mmol/L Potassium 4.1 (3.5-5.1) mmol/L Chloride 106 (98-107) mmol/L Carbon Dioxide 25 (21-32) mmol/L Anion Gap 5.0 (3-11) BUN 15 (7-18) mg/dl Creatinine 1.00 (0.6-1.4) mg/dl Est Cr Clr Drug Dosing 137.9 ml/min Est GFR ( Amer) 100.6 Est GFR (Non-Af Amer) 86.8 BUN/Creatinine Ratio 15.3 (10-20) Glucose 144 H (70-99) mg/dl Calcium 7.8 L (8.5-10.1) mg/dl Total Bilirubin 1.0 (0.2-1) mg/dl AST 19 (15-37) U/L ALT 23 (12-78) U/L Alkaline Phosphatase 81 (45-117) U/L Total Protein 6.1 L (6.4-8.2) gm/dl Albumin 2.9 L (3.4-5.0) gm/dl Globulin 3.2 (2.5-4.0) gm/dl Albumin/Globulin Ratio 0.9 (0.9-2)
[2019-12-18] MEDS: HYDROCODONE/ACETAMOPHEN 5/325MG TAB PO PRN (10:03)
--- NOTE | 2019-12-18 11:16 | Discharge Summary ---
Date of Service December 18, 2019 Admission HPI Per Admitting Provider The patient is a 49-year-old male with a past medical history including depression, dermatitis, eczema, essential hypertriglyceridemia, folliculitis, insomnia, schizoaffective disorder, left radial head fracture and mental disability. He presents to the emergency department after he developed right hip pain after falling while playing basketball earlier in the day. He reports that he waited about 6 hours after the injury to come to the ED. Admission Exam Per Admitting Provider Physical Exam: The patient is awake, alert and oriented 3, well developed and well nourished, normocephalic and atraumatic, lying in bed and in no acute distress. HEENT--PERRL, EOMI, mucous membranes and oropharynx dry. Neck--supple. No JVD. No bruits. Thyroid normal, trachea midline, no adenopathy. Heart--normal S1 and S2. No murmurs, rubs or gallops. Lungs--clear bilaterally, no respiratory distress, no accessory muscle use. Abdomen--normal bowel sounds and soft. Nontender. Nondistended, no hernias or masses, no organomegaly. Extremities--no cyanosis or clubbing. No edema. There are good distal pulses b/l. Dermatologic--normal skin turgor, normal color, no abnormal lymph nodes, no rash. Neurologic--cranial nerves II through XII grossly intact. Rheumatologic--decreased range of motion of right hip, with reproducible pain over right hip and pelvic area Psychiatric--normal affect. Principal Diagnosis Closed Fracture of Neck of Right Femur Discharge Exam Tall Broadened forehead. Marfanoid like appearance. Constitutional WD/WN, vitals as above + obese; no acute distress Eyes + anicteric sclerae and PERRL ENMT external ear and nose normal, oropharynx normal Neck trachea midline, no thyromegaly Respiratory normal respiratory effort, lungs clear to auscultation Auscultation: + diminished lung sounds Cardiovascular RRR, no murmur, no edema Gastrointestinal (Abdomen) normal bowel sounds, soft, nontender, no hepatosplenomegaly Musculoskeletal Dressing to R leg c/d/i. Tender to palpation at incision site. NVI.2+ dp, pt pulses bilaterally. Calves nontender. Strength 3/5 RLE 5/5 Strength LLE, RUE, LUE Skin no rashes, warm and dry Neurologic PERRL, EOMI, accommodation nl, no face palsy, no dysarthria Psychiatric Orientation: alert and oriented x 3 Lymphatic no cervical or axillary lymphadenopathy Discharge Data Allergies Allergy/AdvReac Type Severity Reaction Status Date / Time No Known Allergies Allergy Verified 12/24/19 13:11 Consultations 12/16/19 20:34 ED Decision to Admit Stat 12/17/19 15:50 Consult Case Management - Discharge Planning Routine 12/18/19 10:17 Consult Orthopedic Surgery Routine Procedures Performed Operation Date: 12/17/19 07:50 Actual Procedures p Open Reduction Internal Fixation with Dynamic Hip Screw, Right Hip(Right) - Dennys Berry MD Ordered Studies 12/17/19 13:00 FL fluoroscopy <1hr Routine FL hip RT 2-3V Routine XRAY R hip Hospital Course (1) Closed fracture of neck of right femur: * XRAY with closed right femoral neck fracture. * Orthopedics consulted. s/p ORIF with Dr. Berry on 12/17. Pre-op H/h 15.8/44.9. EBL 200mL. H/h post-op 12.6/35.7 -- acute blood loss following surgery/dilution from IVF. * Lovenox x 2 weeks followed by ASA 81mg BID for two weeks for DVT prophylaxis * Outpatient PT (2) Essential hypertriglyceridemia: * Hx of. On no noted treatment. Repeated lipid panel * Well controlled --> triglycerides 76, cholesterol 162, LDL 96, HDL 51 (3) Depression: * Depression/schizoaffective disorder/mental disability/seizure disorder * Continued Zyprexa, benztropine, carbamazepine, Seroquel, risperidone, sertraline and zaleplon. (4) Schizoaffective disorder: * See above (5) Mental disability: * See above -- patient disabled, but lives at home with girlfriend (6) Seizures: * See above (7) Eczema: * Continued usual topical agents. (8) DVT prophylaxis: * SCDs * Lovenox x 2 weeks post-op, then ASA 81mg BID for 2 weeks. Discharged home with home health, raised toilet seat, and walker. Follow up with ortho in 2 weeks for staple removal -- appt on TuesdayDecember 30 10AM. (9) Acute blood loss anemia: * See above. Secondary to acute blood loss/dilution from surgery Total Time Total Time Spent Total Time Spent (In Minutes): 60 Discharge Plan Discharge Items Patient Disposition: Home - Home Health Services Reason For Visit: CLOSE RIGHT FEMORAL NECK FX Discharge Diagnosis: ORIF Right femoral neck fracture Condition on Discharge: Good Goals: You have been hospitalized for an urgent problem which required surgery. During your stay at [facility], we have made an effort to correct the problem that brought you to the hospital while keeping you as comfortable as possible. Surgery and medications were used to bring your condition under control and your discharge instructions will include directions for any medications you should take after leaving the hospital. Please make sure to follow the advice of your surgeon regarding follow up with the surgeon and with your primary care provider. Activity: As commented below Bathing: Keep incision dry Bathing Comment: May shower tomorrow Sexual Activity: Wait until after follow-up appointment Exercise/Sports: Wait until after follow-up appointment Driving/Machine Use: No driving until cleared by client success specialist Weightbearing: Right weightbearing Weightbearing Comment: as tolerated with walker assitance Non-emergency contact: Primary Care Provider Call non-emergency contact if: you have any medication questions, your pain is not controlled, your temperature is above 101.5, your wound has increased drainage and your wound pain has increased Follow-up/Referrals: Tyler Golden MD [Primary Care Provider] - 12/24/19 1:30 pm Scotty Franco PA-C [Physician Donor Relations Officer] - 12/31/19 10:00 am Diet: Regular Addtl Attending Provider Instructions: Post-operative Instructions Dear Patient and Family/Friends, Before you are discharged from the hospital, it is important to know what to expect when you get home after surgery. To that end, we have created this sheet of discharge instructions which covers many commonly asked questions. Make sure you go through this sheet in its entirety with your nurse before you are discharged. Please note that we will go over the specifics of your surgery and recovery when you return for your first post-operative visit. Sincerely, Dr. Berry Medications 1. Lovenox 40 mg subcutaneous injection: 1 injection daily for 14 days post operatively. Alternate to each side of her belly button. A prescription for this medication will be sent to your pharmacy. 2. Aspirin 81mg: Take 1 tab twice daily for 14 additional days after you have finished the Lovenox injections. Please purchase this medication. 3. [place] 5/325 mg: take 1-2 tab by mouth every 4-6 hours for pain control. A prescription for 30 tablets will be sent to your pharmacy. Pain Expect to be in a fair amount of pain after surgery. Remember, our goal is not to eliminate your pain, but to make it tolerable. It is a good idea to stay ahead of your pain by taking the medications you were prescribed once you get home. Typically, the pain starts improving 3-7 days after surgery. You should start weaning off the narcotic pain medication (oxycodone, hydrocodone, hydromorphone, morphine) as soon as your pain improves. Please call our office if your pain is not adequately controlled. Ice Ice your operative site at least 5 times a day for 15-30 minutes at a time. Make sure you have a thin cloth between the ice or cooling unit and your skin to prevent monk bite. This is especially important if you received a nerve block. Continue icing your operative site for the first 5-7 days after surgery, then as needed. Diet/Nausea/Vomiting Start by drinking clear liquids and eating crackers. If you can tolerate this, then you may resume your normal diet. If you feel nauseated or vomit, take Zofran/ondansetron (if prescribed). Please call our office if you have intractable nausea or vomiting, or, if after hours, you may go to the Emergency Room for help. Constipation Constipation is a common side effect of narcotic pain medication. If you have not had a bowel movement within 2 days after surgery, we recommend purchasing an over the counter laxative such as Milk of Magnesia, Dulcolax, or Miralax from a local pharmacy, and taking it as instructed. Call our clinic if any questions. Nerve block The anesthesia team sometimes places a nerve block to help with post-operative pain control. This results in significant numbness and inability to move the extremity. The nerve block usually wears off in 8-12 hours, but sometimes can last up to 24 hours. Please call our office if you are still unable to move your extremity after 24 hours, unless you received a pain pump to take home. Nerve blocks typically wear off quickly, so start taking pain medication as soon as you start feeling soreness near your surgical site. Weight bearing and Range of Motion. Do not bear any weight through your operative extremity immediately after surgery. If you had upper extremity surgery, do not lift anything with that arm. If you are in a knee brace, keep it locked in place until your follow-up. We will discuss your weight bearing, range of motion, and lifting restrictions in detail at your first post-operative appointment. Continuous Passive Motion (CPM) Machine If you were prescribed a CPM machine, it will start after your first post- operative appointment, at which time we will give you instructions on the range of motion settings and duration of treatment Physical therapy You will be given a prescription for physical therapy or occupational therapy at your first post-operative appointment. Typically, patients start therapy within 1 week of surgery Wound care and showering We will inspect your wound at your first post-operative visit, and may do a dressing change at that time. Most patients will be in a water-proof dressing that is removed 14 days after surgery. It is normal to see some dried blood on the dressing. Do not remove your dressing, paper strips or sutures yourself unless you are given permission. Showering is allowed the day after surgery. Do not scrub or remove any dressings. The wound should not be submerged underwater (i.e. in a bathtub or pool) until 4 weeks after surgery JUSTIN stockings If you were given white stockings, these are to be worn at all times except to shower (on both legs) for the first 2 weeks after surgery. Driving You may not drive while taking narcotic pain medication or while in a cast, splint, sling or brace. You, the patient, need to make the final determination about when you are safe to drive, however, the earliest you may consider driving after surgery is below: Hand/Wrist/Elbow Surgery: 3 days Shoulder Surgery: 2 weeks Hip,/Knee/Ankle Surgery: 4 weeks Fracture repair: 6 weeks Return to Work Your return to work depends on what surgery was done and what type of work you do. Please bring any paperwork your employer needs completed to your first pos t-operative visit. Also, bring a description of your job duties, as this helps us to understand what risks you may face at work. Travel Avoid long distance travel (greater than 1 hour) in airplanes and cars for the first 6 weeks after surgery. If you must travel, you need to have a Doppler ultrasound done before you travel to rule out a blood clot in your legs. Follow-up You should have a follow-up appointment already scheduled 1-2 days after surgery. If not, please contact our office to make this appointment before you leave the hospital. When to call the office It is normal to have swelling and bruising in the limb that was operated on. This will improve with time. It is also normal to have fevers for the first 2 days after surgery. Reasons you should call your doctor include: Uncontrolled pain; Nausea, vomiting, or constipation that does not improve with medication; Fevers over 101.5, chills, sweats; Drainage or bleeding from the wound; Foul odor; Spreading areas of redness; Any other concerns Please return to the emergency room for any worsening pain, fevers, shortness of breath, or for any other symptoms that are concerning for you. Follow up with your primary care provider in the next 5-7 days. You have been provided scripts for a raised toilet seat and walker to assist you during your recovery period. It has been a pleasure being a part of the care team providing for you during this hospitalization. Take care! Pending Studies at Discharge: No Stand-Alone Forms: My [facility] [employer], Smoking Cessation Medications and DC Order Prescriptions: New hydrocodone-acetaminophen [[place]] 5-325 mg tablet See Rx Instructions .ROUTE .COMPLEX Qty: 30 RF: 0 Continued aripiprazole 15 mg tablet 15 mg PO DAILY RF: 0 benztropine 1 mg tablet 1 mg PO QAM RF: 0 carbamazepine 400 mg tablet extended release 12 hr 400 mg PO BID RF: 0 clindamycin phosphate 1 % solution 1 appln topical .COMPLEX RF: 0 fluocinonide 0.05 % ointment 1 appln topical .COMPLEX RF: 0 hydrocortisone 1 % ointment 1 appln topical .COMPLEX RF: 0 risperidone 3 mg tablet 3 mg PO HS RF: 0 sertraline 25 mg tablet 25 mg PO HS RF: 0 triamcinolone acetonide 0.1 % cream 1 appln topical .COMPLEX RF: 0 quetiapine 100 mg Tablet 100 mg PO HS RF: 0 zaleplon 10 mg Capsule 10 mg PO HS PRN (Reason: Sleep) RF: 0 No Action enoxaparin 40 mg/0.4 mL syringe 40 mg SQ .COMPLEX RF: 0 aspirin 81 mg tablet 81 mg PO .COMPLEX RF: 0 Discharge Orders: Discharge Order (Routine); Ordered 12/18/19 Ordered By: Linh Benson Admission Data Admit Date/Time: 12/16/19 21:29 Attending Provider: Shruthi Strong Admit Provider: Gilbert Harrell Primary Care Provider: Tyler Golden Other Providers: Gilbert Harrell ; Dennys Berry Other Interventions: Discharge Summary Assessment (RN) Last Done: 12/18/19 12:09 DC Date/Time DO NOT enter until pt leaves facility: 12/18/19 15:45 Supervising Physician Co-Signing Physician Notes PA Supervision Note: I personally saw and examined the patient. I verified all mcqueen points and agree with FANNY Benson with the following exceptions and/or additions: Pt doing very well POD#1 s/p right hip ORIF. Has mild pain, controlled, is ambulating with assistance. Denies CP or SOB, is kimber po , denies N/V. Ready for dc to home VSS NAD, AAOx3 RRR no mgr CTAB no wcr Abd +BS soft NT ND EXT dressing intact rt hip, minimal edema RLE 49 yo male with history as above here with fall and rt hip fracture -stable for dc to home with Ortho f/u -needs DEXA scan as outpt for screening for osteoporosis Coding Level of Care Code D/C Day Management >30 mins Diagnoses Closed fracture of neck of right femur S72.001A Essential hypertriglyceridemia E78.1 Depression F32.9 Schizoaffective disorder F25.9 Mental disability F79 Seizures R56.9 Eczema L30.9 DVT prophylaxis Z29.9 Acute blood loss anemia D62
== END 2019-12-18 15:45 | disposition home health service (06) | DRG 482 ==
LOC: ED 19:02 → SUATTDRO 21:29 → 3N 21:29

== ENCOUNTER 2020-03-24 10:37 | Inpatient (IN) ==
--- NOTE | 2020-03-24 11:18 | Emergency Department Note ---
History of Present Illness General Chief complaint: Referred by Doctor Stated complaint: DOC REFERRED,PT WAS HERE LAST NIGHT Time Seen by Provider: 03/24/20 10:58 Source: patient Mode of arrival: ambulatory History of Present Illness Provider complaint: Shortness of breath Onset (ago): week(s) 2 Location: chest Severity: moderate Maximum Pain Intensity: 2 Quality: + other (Out of breath) Exacerbated By: + other (Exertion) Associated symptoms: no chest pain, no cough, no fever/chills and no nausea/vomiting This is a 50-year-old male who presents with shortness of breath for the past 2 weeks. He stated that he feels more short of breath when he is walking around or exerting himself. He has had intermittent shortness of breath for the past 2 weeks. He denies any cough or cold symptoms or fever. He also denies any chest discomfort or pain. He states he was seen here yesterday and had a work-up which showed a large amount of fluid in his right lung. He signed out AGAINST MEDICAL ADVICE because he had to take care of a few things for his girlfriend. He has done so and so he returns to be hospitalized. He has no new symptoms today. He states that he was tested for COVID-19 and it was negative and he has had no known exposure to COVID-19. He denies abdominal pain, vomiting or diarrhea, urinary symptoms or leg swelling. Home Medications Home Medications Medication Instructions Recorded Confirmed Type aripiprazole 15 mg tablet 15 mg PO DAILY tab 07/24/19 03/24/20 History benztropine 1 mg tablet 1 mg PO QAM tab 07/24/19 03/24/20 History carbamazepine 400 mg 400 mg PO BID tab 07/24/19 03/24/20 History tablet,extended release,12 hr risperidone 3 mg tablet 3 mg PO HS tab 07/24/19 03/24/20 History sertraline 25 mg tablet 25 mg PO HS tab 07/24/19 03/24/20 History quetiapine [Seroquel] 100 mg PO HS 12/16/19 03/24/20 History zaleplon 10 mg PO HS PRN 12/16/19 03/24/20 History amoxicillin-pot clavulanate 1 tab PO Q8H #30 tab 03/23/20 03/24/20 Rx [Augmentin] doxycycline hyclate 100 mg PO Q12H 10 Days #20 tab 03/23/20 03/24/20 Rx doxepin 10 mg PO DAILY 03/24/20 03/24/20 History Allergies Allergy/AdvReac Type Severity Reaction Status Date / Time No Known Allergies Allergy Verified 03/24/20 12:00 Past Med/Surg History Medical History Depression (Acute) Dermatitis (Acute) Eczema (Acute) Essential hypertriglyceridemia (Acute) Folliculitis (Acute) Insomnia (Acute) Left radial head fracture (Inactive 2014) Mental disability (Acute) Osteoarthritis of knee (Acute) Schizoaffective disorder (Acute) Seizures Surgical History History of ankle surgery History of left knee surgery Status post-operative repair of closed fracture of right hip Family History Grandmother Diabetes Grandfather Coronary heart disease Social History Preferred Language: Polish Communication Ability: Effective C Unix 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 and A total of 10 systems reviewed and were otherwise negative Physical Exam Vital Signs Vital Signs - 24 hr 03/24/20 10:49 03/24/20 11:30 03/24/20 11:31 Temperature 36.4 C L Temperature Source Oral Pulse Rate 114 H 102 H 103 H Pulse Rate from SpO2 Sensor 102 H 103 H Respiratory Rate 18 16 18 Respiratory Effort / Characteristics Spontaneous Respiratory Depth Normal Respiratory Pattern Regular Blood Pressure 141/76 H 146/80 H Blood Pressure Mean 97 94 Blood Pressure Position Sitting Pulse Oximetry 99 96 97 Oxygen Delivery Method Room Air Sepsis Recent Fever Within 48 Hours No Sepsis New/Unexplained Change in Mental Status No Sepsis Action Taken by Nursing No Action Required 03/24/20 12:00 03/24/20 12:01 Temperature Temperature Source Pulse Rate 97 H 96 H Pulse Rate from SpO2 Sensor 97 H 97 H Respiratory Rate 20 Respiratory Effort / Characteristics Respiratory Depth Respiratory Pattern Blood Pressure 140/85 Blood Pressure Mean 100 Blood Pressure Position Pulse Oximetry 96 96 Oxygen Delivery Method Sepsis Recent Fever Within 48 Hours Sepsis New/Unexplained Change in Mental Status Sepsis Action Taken by Nursing Constitutional: Vital signs reviewed. Eyes: Pupils are equal round reactive to light. Conjunctiva are noninjected. ENT: Pharynx is clear without erythema or exudate. Mucous membranes are moist. Neck supple without meningeal signs. Respiratory: Clear to auscultation with diminished breath sounds on the right side. Cardiovascular: Tachycardic. Regular rhythm. Heart rate 103. GI: Soft, nondistended and nontender. Bowel sounds are present. Musculoskeletal: No peripheral edema. No lower extremity tenderness. Integumentary: No cyanosis. or jaundice. Neurological: The patient is awake and alert. No focal deficits. Psychiatric: Normal affect. Not anxious appearing. Medical Decision Making Differential Diagnosis Pleural effusion, empyema, malignancy, anemia, pneumonia Medical Records Attestation: I reviewed the patient's medical records. The patient was seen here yesterday for shortness of breath. He had a COVID-19 test which was negative. He also had a CT of his chest which showed a very large right-sided pleural effusion without evidence of PE. He did leave AGAINST MEDICAL ADVICE. Home Medications Current Medication List: was personally reviewed by me Laboratory Data Attestation: I reviewed the patient's lab results. Result diagrams: 03/24/20 11:28 03/24/20 11:28 Lab Results 03/24/20 03/24/20 Range/Units 11:28 11:28 WBC 7.99 (4.8-10.8) K/uL RBC 4.70 (4.7-6.1) M/uL Hgb 14.8 (14.0-18.0) g/dL Hct 42.4 (42-52) % MCV 90.2 (80-100) fL MCH 31.5 (25-34) pg MCHC 34.9 (32-36) g/dL RDW Std Deviation 40.3 (36.4-46.3) fL RDW Coeff of Silvia 12.1 (11.5-14.5) % Plt Count 367 (130-400) K/uL MPV 8.4 (7.4-10.4) fL Immature Gran % (Auto) 0.5 % Neut % (Auto) 84.4 % Lymph % (Auto) 7.4 % [place] % (Auto) 6.4 % Eos % (Auto) 0.9 % Baso % (Auto) 0.4 % Immature Gran # (Auto) 0.04 H (0.00-0.02) K/uL Neut # (Auto) 6.75 H (1.4-6.5) K/uL Lymph # (Auto) 0.59 L (1.2-3.4) K/uL [place] # (Auto) 0.51 (0.11-0.59) K/uL Eos # (Auto) 0.07 (0-0.5) K/uL Baso # (Auto) 0.03 (0-0.2) K/uL Sodium 136 (136-145) mmol/L Potassium 3.6 (3.5-5.1) mmol/L Chloride 102 (98-107) mmol/L Carbon Dioxide 26 (21-32) mmol/L Anion Gap 8.0 (3-11) BUN 6 L (7-18) mg/dl Creatinine 0.86 (0.6-1.4) mg/dl Est Cr Clr Drug Dosing 129.9 ml/min Est GFR ( Amer) 115.6 Est GFR (Non-Af Amer) 99.7 BUN/Creatinine Ratio 6.6 L (10-20) Glucose 161 H (70-99) mg/dl Calcium 8.9 (8.5-10.1) mg/dl Imaging Data Radiologist's Impression: XR chest 1V portable CLINICAL HISTORY: right effusion fusion COMPARISON STUDY: 03/23/2020 FINDINGS: Large right pleural effusion unchanged. Left lung remain generally clear. IMPRESSION: Unchanged exam. Large right pleural effusion unchanged. ACT 112: Negative or not required by law. The above report was generated using voice recognition software. It may contain grammatical, syntax or spelling errors. Electronically signed by: Eros Araiza M.D. 03/24/2020 11:38 AM ECG Data Attestation: I personally reviewed and interpreted this ECG as follows: Indication: + SOB/dyspnea Rate (beats per minute): 97 Rhythm: + normal sinus ECG Intervals/blocks: no Left bundle branch block ECG ST segments: no ST elevation ECG Findings: + Other (Likely limb lead reversal); no PVCs Blood Pressure Blood Pressure Findings: Elevated blood pressure Blood Pressure Disposition: further management by hospitalist MDM Narrative I did evaluate the patient as noted above. The patient is persisting the patie nt is presenting with persistent shortness of breath. He left here AMA after being told he had a very large right pleural effusion. He took care of some personal business and is here for admission. He has had no significant change in symptoms. IV access was established. I did place an order for continuous cardiac monitoring. The monitor showed sinus rhythm with a rate of 100. I did order and personally review the patient's 12-lead EKG as described above. He has no acute ischemia. I did order and personally reviewed the images of the patient's chest x-ray as described above. He has no change in his right pleural effusion. I did order and review the patient's blood work as noted in the electronic medical record. Labs are unremarkable without signs of anemia, leukocytosis or significant electrolyte abnormality. I did discuss the case with the hospitalist and embedded case manager. Impression & Plan Acute dyspnea, Pleural effusion on right Discharge Plan Visit Data *Final* Discharge Date/Time: 03/24/20 13:26 Chief Complaint: Referred by Doctor Stated Complaint: DOC REFERRED,PT WAS HERE LAST NIGHT ED Provider: Dano Ibrahim Discharge Problem: Acute dyspnea, Pleural effusion on right Discharge Instructions Interventions: ED Discharge Assessment Last Done: 03/24/20 12:54
--- NOTE | 2020-03-24 11:39 | XRay Report ---
XR chest 1V portable CLINICAL HISTORY: right effusion fusion COMPARISON STUDY: 03/23/2020 FINDINGS: Large right pleural effusion unchanged. Left lung remain generally clear. IMPRESSION: Unchanged exam. Large right pleural effusion unchanged. ACT 112: Negative or not required by law. The above report was generated using voice recognition software. It may contain grammatical, syntax or spelling errors. Electronically signed by: Eros Araiza M.D. 03/24/2020 11:38 AM
[2020-03-24 11:41] LABS: Basophils # (auto) 0.03 K/uL (0-0.2); Basophils % (auto) 0.4 %; Eosinophils # (auto) 0.07 K/uL (0-0.5); Eosinophils % (auto) 0.9 %; Hematocrit (blood only) 42.4 % (42-52); Hemoglobin 14.8 g/dL (14.0-18.0); Immature Granulocytes # (auto) 0.04 K/uL (0.00-0.02); Immature Granulocytes % (auto) 0.5 %; Lymphocytes # (auto) 0.59 K/uL (1.2-3.4); Lymphocytes % (auto) 7.4 %; Mean Corpuscular Hemoglobin 31.5 pg (25-34); Mean Corpuscular Hgb Conc 34.9 g/dL (32-36); Mean Corpuscular Volume 90.2 fL (80-100); Mean Platelet Volume 8.4 fL (7.4-10.4); Monocytes # (auto) 0.51 K/uL (0.11-0.59); Monocytes % (auto) 6.4 %; Neutrophils # (auto) 6.75 K/uL (1.4-6.5); Neutrophils % (auto) 84.4 %; Platelet Count 367 K/uL (130-400); RDW Coefficient of Variation 12.1 % (11.5-14.5); RDW Standard Deviation 40.3 fL (36.4-46.3); White Blood Count 7.99 K/uL (4.8-10.8)
[2020-03-24 12:01] LABS: BUN Creatinine Ratio 6.6 (10-20); Calcium 8.9 mg/dl (8.5-10.1); Creatinine Clr Calc Pharmacy 129.9 ml/min; Est GFR (African American) 115.6; Est GFR (Non-African American) 99.7; Potassium 3.6 mmol/L (3.5-5.1)
--- NOTE | 2020-03-24 12:29 | History & Physical Report ---
Date of Service March 24, 2020 Assessment & Plan (1) Pleural effusion on right: Pt is a 50 yo male here with large possibly loculated right sided pleural effusion. -Admit to med/surg -needs thoracentesis -could be infectious vs malignant vs other--> proBNP is normal so not likely from CHF Does have elevated alk phos and urobilinogen in urine--> no abd pain or nausea, question chylothorax? -Consult Pulmonology-d/w Dr. Houston who will see the pt today --start empiric Unasyn IV (2) Shortness of breath: Secondary to large pleural effusion as above Not hypoxic (3) Depression: continue home meds (4) Essential hypertriglyceridemia: noted but not o nmeds for this (5) Mental disability: supportive care -he is able to consent and understands his condition He did leave AMA from ER the day prior to admission only because of his great concern for his girlfriend with intellectual disability at home, but he understands importance of staying in hospital now for further eval and treatment (6) Schizoaffective disorder: -stable -continue home meds (7) Elevated alkaline phosphatase level: as above, Alk phos up to 180 and with urobil in urine, but other LFTs normal -could be fatty liver but is much higher than previous -could be related to large rt pleural effusion -follow LFTs (8) DVT prophylaxis: SCDs No Lovenox until after thoracentesis Dispo-admit to med surg on OBS History of Present Illness Chief Complaint: SOB Primary Care Provider: Tyler Golden MD This pt is a 50 yo male with a h/o intellectual disability, seizure disorder, schizoaffective disorder, depression, insomnia, hyperlipidemia, and a recent hip fracture with repair 3 months ago, who presents to the ER with SOB and PATEL x 2 weeks. He was going to PT and climbing up and down stairs for hip rehab prior to that without any difficulties. He then tried taking a walk outside in the park 2 weeks ago and noticed significant SOB. He recovers with sitting down. Denies any cough or fevers/chills, no chest pain or leg swelling. No recent sick contacts. he has been staying home with his girlfriend and does not work. He does go to the grocery store and to physical therapy but is cautious and wears a mask. he was tested fro COVID-19 here yesterday in the ER and was negative. He was also found then to have a large right-sided possibly loculated pleural effusion. He was advised to be admitted for drainage and IV abx and he left the ER AMA as he was concerned about his girlfriend being able to have enough food for the week (she also has intellectual disability). He was given a dose of IV Unasyn and po doxy and sent home with Augmentin and doxy with intent to return to the ER today. He is not hypoxic here. He denies nausea or vomiting, no diarrhea or constipation, no changes in bowel habits, no abd pain. Alk phos is elevated from previous and UA with urobilinogen. He is afebrile here and no leukocytosis. He will be admitted on observation for further evaluation of his loculated pleural effusion and IV antibiotics. Allergies Allergy/AdvReac Type Severity Reaction Status Date / Time No Known Allergies Allergy Verified 03/24/20 12:00 Home Medications Home Medications Medication Instructions Recorded Confirmed Type aripiprazole 15 mg tablet 15 mg PO DAILY tab 07/24/19 03/24/20 History benztropine 1 mg tablet 1 mg PO QAM tab 07/24/19 03/24/20 History carbamazepine 400 mg 400 mg PO BID tab 07/24/19 03/24/20 History tablet,extended release,12 hr risperidone 3 mg tablet 3 mg PO HS tab 07/24/19 03/24/20 History sertraline 25 mg tablet 25 mg PO HS tab 07/24/19 03/24/20 History quetiapine [Seroquel] 100 mg PO HS 12/16/19 03/24/20 History zaleplon 10 mg PO HS PRN 12/16/19 03/24/20 History amoxicillin-pot clavulanate 1 tab PO Q8H #30 tab 03/23/20 03/24/20 Rx [Augmentin] doxycycline hyclate 100 mg PO Q12H 10 Days #20 tab 03/23/20 03/24/20 Rx doxepin 10 mg PO DAILY 03/24/20 03/24/20 History Past Med/Surg History Medical History Depression (Acute) Dermatitis (Acute) Eczema (Acute) Essential hypertriglyceridemia (Acute) Folliculitis (Acute) Insomnia (Acute) Left radial head fracture (Inactive 2014) Mental disability (Acute) Osteoarthritis of knee (Acute) Schizoaffective disorder (Acute) Seizures Surgical History History of ankle surgery History of left knee surgery Status post-operative repair of closed fracture of right hip Family History Grandmother Diabetes Grandfather Coronary heart disease Social History Preferred Language: Estonian Communication Ability: Effective Arabic Linguist Required: No Beliefs That Will Affect Care: None marital status: Current Living Situation: Significant Other current occupational status: disabled Feels Safe at Home: Yes Smoking Status: Never smoker Hx Alcohol Use: No Hx Substance Use: No Review of Systems Review of Systems: All systems reviewed & are unremarkable except as noted in HPI & below Physical Exam Constitutional: WD/WN, vitals as above broad forehead, dysmorphic features Eyes: + anicteric sclerae ENMT: external ear and nose normal, oropharynx normal Neck: trachea midline, no thyromegaly Respiratory: normal respiratory effort; no labored breathing Auscultation: + diminished lung sounds (on right side entire lung arzola); no crackles, no rhonchi and no wheezes Cardiovascular: RRR, no murmur, no edema Chest (Breasts): Chest: normal inspection of chest Gastrointestinal (Abdomen): normal bowel sounds, soft, nontender, no hepatosplenomegaly Musculoskeletal: Extremities: extremities normal to inspection; no cyanosis and no clubbing Skin: no rashes, warm and dry Neurologic: moves all extremities and awake; no focal motor deficits Psychiatric: A+Ox3, euthymic affect Lymphatic: no lymphedema Results & Data Results & Data ([facility]) Vital Signs (Past 12 Hours) Vital Signs Temp Pulse Resp BP Pulse Ox 03/24/20 11:31 103 H 18 97 03/24/20 11:30 102 H 16 146/80 H 96 03/24/20 10:49 36.4 C L 114 H 18 141/76 H 99 Laboratory Results 03/24/20 03/24/20 Range/Units 11:28 11:28 WBC 7.99 (4.8-10.8) K/uL RBC 4.70 (4.7-6.1) M/uL Hgb 14.8 (14.0-18.0) g/dL Hct 42.4 (42-52) % MCV 90.2 (80-100) fL MCH 31.5 (25-34) pg MCHC 34.9 (32-36) g/dL RDW Std Deviation 40.3 (36.4-46.3) fL RDW Coeff of Silvia 12.1 (11.5-14.5) % Plt Count 367 (130-400) K/uL MPV 8.4 (7.4-10.4) fL Immature Gran % (Auto) 0.5 % Neut % (Auto) 84.4 % Lymph % (Auto) 7.4 % [place] % (Auto) 6.4 % Eos % (Auto) 0.9 % Baso % (Auto) 0.4 % Immature Gran # (Auto) 0.04 H (0.00-0.02) K/uL Neut # (Auto) 6.75 H (1.4-6.5) K/uL Lymph # (Auto) 0.59 L (1.2-3.4) K/uL [place] # (Auto) 0.51 (0.11-0.59) K/uL Eos # (Auto) 0.07 (0-0.5) K/uL Baso # (Auto) 0.03 (0-0.2) K/uL Sodium 136 (136-145) mmol/L Potassium 3.6 (3.5-5.1) mmol/L Chloride 102 (98-107) mmol/L Carbon Dioxide 26 (21-32) mmol/L Anion Gap 8.0 (3-11) BUN 6 L (7-18) mg/dl Creatinine 0.86 (0.6-1.4) mg/dl Est Cr Clr Drug Dosing 129.9 ml/min Est GFR ( Amer) 115.6 Est GFR (Non-Af Amer) 99.7 BUN/Creatinine Ratio 6.6 L (10-20) Glucose 161 H (70-99) mg/dl Calcium 8.9 (8.5-10.1) mg/dl Diagnostic Findings CXR image personally reviewed by nad agree with the following report: XR chest 1V portable CLINICAL HISTORY: right effusion fusion COMPARISON STUDY: 03/23/2020 FINDINGS: Large right pleural effusion unchanged. Left lung remain generally clear. IMPRESSION: Unchanged exam. Large right pleural effusion unchanged. CT ANGIOGRAM OF THE CHEST CLINICAL HISTORY: Atypical chest pain. COMPARISON STUDY: Chest x-ray dated 03/23/2020. TECHNIQUE: Following the IV administration of 120 cc of Optiray 320, CT angiogram of the chest was performed from the upper abdomen to the thoracic inlet utilizing the pulmonary embolus protocol. Images are reviewed in the axial, sagittal, and coronal planes. 3-D MIPS images are created and assessed. IV contrast was administered without complication. A dose lowering technique was utilized adhering to the principles of ALARA. The examination is compromised by motion artifact. CT DOSE: 624.42 mGycm FINDINGS: Thyroid: Imaged portions of the thyroid gland are normal in size and attenuation. Thoracic aorta: The thoracic aorta is normal in caliber and demonstrates standard 3-vessel arch anatomy. No dissection is seen. Pulmonary vasculature: The pulmonary trunk is normal in caliber. There are no filling defects identified in main, lobar, or proximal segmental pulmonary branches to suggest pulmonary embolus. Evaluation of the distal branches is degraded by motion artifact. Heart: The heart is normal in size and without pericardial effusion. Lungs and pleural spaces: Evaluation of the lung parenchyma is significantly degraded by motion artifact. There is a large right pleural effusion with near complete atelectasis of the right lung. There is partial aeration of the right upper lobe. The left lung appears clear. The trachea and central airways are patent. Mediastinum: There is no mediastinal lymphadenopathy. [place]: Clear. Axillae: There is no axillary lymphadenopathy. Upper abdomen: Partially visualized upper abdominal viscera is within normal limits. Skeletal structures: No lytic or blastic bony lesions are seen. IMPRESSION: 1. Motion compromised examination. 2. There is no evidence of pulmonary embolus in the main, lobar, or proximal segmental pulmonary arteries. 3. Large right pleural effusion with near complete atelectasis of the right lung. 4. The left lung is grossly clear. Code Status & VTE Plan Code Status Full Code VTE Prophylaxis Plan VTE Prophylaxis will be ordered: Yes PG Care Time/CCT Total # of Minutes Spent Total Time Spent with Patient: Total time spent is greater than 50% in coordination of care (as documented) at patient's floor/unit and/or counseling patient: Coding Level of Care Code 91213 OBS Care - Level 3 Diagnoses Pleural effusion on right J90 Shortness of breath R06.02 Depression F32.9 Essential hypertriglyceridemia E78.1 Mental disability F79 Schizoaffective disorder F25.9 Elevated alkaline phosphatase level R74.8 DVT prophylaxis Z29.9
[2020-03-24] MEDS ORDERED: ZALEPLON 5 MG CAPSULE PO PRN (13:37)
[2020-03-24] MEDS ORDERED: ONDANSETRON INJ 2 MG/ML 2 ML VIAL IV PRN (13:37)
[2020-03-24] MEDS ORDERED: ALUMINUM/MAGNESIUM SUSP 30 ML UDC PO PRN (13:37)
--- NOTE | 2020-03-24 15:07 | Pulmonary Consultation ---
Date of Consultation March 24, 2020 Assessment & Plan (1) Abnormal CT scan of lung: Impression: 50-year-old male presenting with massive right-sided pleural effusion of unclear etiology. Malignancy, infection, trauma, and chylothorax would all be on the differential. Recommendations: 1. Patient will undergo ultrasound-guided catheter thoracentesis on the right. Fluid will be spent for microbiologic as well as cytologic analysis. Given the extensive nature of the fluid, placement of an indwelling pleural drain may be appropriate. We will see how he does. 2. Given the possibility of infection/empyema, I recommended the patient be initiated on antimicrobial therapy to cover anaerobes. Adjustment in antibiotics will be based on analysis of pleural fluid studies follow-up imaging and clinical course. 3. Management of the patient's other medical issues is deferred to the hospit alist service. We will continue to follow with you. (2) Acute dyspnea: (3) Pleural effusion on right: History of Present Illness Attending Physician: Shruthi Strong MD History of Present Illness Asked by hospitalist to assist in patient with pleural effusion. History is obtained from discussion with the patient as well as review of the record. The patient is a 50-year-old non-smoking male with some developmental delay. He presented to the emergency room yesterday with shortness of breath. CT scan was significant for a massive right-sided pleural effusion with near complete atelectasis of the lower lobe and partial of the right upper lobe. The patient signed out AMA last night as he had some issues to take care of at home. He returned to the emergency room today where chest x-ray again confirmed the presence of a large right-sided pleural effusion and he is being admitted for further management. The patient reports that he does experience some shortness of breath especially while walking. He does not describe any history of trauma. No cough or o rthopnea. He is not had any fevers chills or night sweats that he endorses although there was some mention in an urgent care note about a febrile illness when he presented. He has not had prior pleural effusions. No history of cirrhosis or kidney disease. Allergies Allergy/AdvReac Type Severity Reaction Status Date / Time No Known Allergies Allergy Verified 03/24/20 12:00 Home Medications Home Medications Medication Instructions Recorded Confirmed Type aripiprazole 15 mg tablet 15 mg PO DAILY tab 07/24/19 03/24/20 History benztropine 1 mg tablet 1 mg PO QAM tab 07/24/19 03/24/20 History carbamazepine 400 mg 400 mg PO BID tab 07/24/19 03/24/20 History tablet,extended release,12 hr risperidone 3 mg tablet 3 mg PO HS tab 07/24/19 03/24/20 History sertraline 25 mg tablet 25 mg PO HS tab 07/24/19 03/24/20 History quetiapine [Seroquel] 100 mg PO HS 12/16/19 03/24/20 History zaleplon 10 mg PO HS PRN 12/16/19 03/24/20 History amoxicillin-pot clavulanate 1 tab PO Q8H #30 tab 03/23/20 03/24/20 Rx [Augmentin] doxycycline hyclate 100 mg PO Q12H 10 Days #20 tab 03/23/20 03/24/20 Rx doxepin 10 mg PO DAILY 03/24/20 03/24/20 History Patient History Medical History Depression (Acute) Dermatitis (Acute) Eczema (Acute) Essential hypertriglyceridemia (Acute) Folliculitis (Acute) Insomnia (Acute) Left radial head fracture (Inactive 2013) Mental disability (Acute) Osteoarthritis of knee (Acute) Schizoaffective disorder (Acute) Seizures Surgical History History of ankle surgery History of left knee surgery Status post-operative repair of closed fracture of right hip Family History Grandmother Diabetes Grandfather Coronary heart disease Social History Preferred Language: Mohawk Communication Ability: Effective 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 Beliefs That Will Affect Care: None marital status: Current Living Situation: Significant Other current occupational status: disabled Other Information That Helps Us Care for You: No Feels Safe at Home: Yes Safety Concerns: Feels Safe At This Time Smoking Status: Never smoker Do You Dip or Chew Tobacco: No ; Second Hand Exposure: No ; Tobacco Cessation Education Requested by Patient: No Hx Alcohol Use: No Hx Substance Use: No Review of Systems Review of Systems: All systems reviewed & are unremarkable except as noted in HPI & below Physical Exam Constitutional: WD/WN, vitals as above Neck: trachea midline, no thyromegaly Respiratory: normal respiratory effort; not tachypneic Decreased breath sounds right lung base with dullness to percussion and decreased fremitus Cardiovascular: RRR, no murmur, no edema Gastrointestinal (Abdomen): normal bowel sounds, soft, nontender, no hepatosplenomegaly Musculoskeletal: Extremities: extremities normal to inspection Skin: no rashes, warm and dry Neurologic: Nonfocal exam Lymphatic: no cervical lymphadenopathy Results & Data Results & Data ([facility]) Vital Signs (Past 12 Hours) Vital Signs Temp Pulse Pulse Resp BP BP Pulse Ox 03/24/20 13:23 36.6 C 101 H 20 130/88 96 03/24/20 12:31 96 H 95 03/24/20 12:30 95 H 18 155/78 H 96 03/24/20 12:01 96 H 96 03/24/20 12:00 97 H 20 140/85 96 03/24/20 11:31 103 H 18 97 03/24/20 11:30 102 H 16 146/80 H 96 03/24/20 10:49 36.4 C L 114 H 18 141/76 H 99 Laboratory Results 03/24/20 11:28 03/24/20 11:[address] of the chest independently reviewed. There is a massive right-sided pleural effusion with near complete atelectasis of the lower lobe and partial of the right upper lobe. There is not significant mediastinal shift noted. No susp icious mediastinal or hilar adenopathy identified. The pulmonary parenchyma of the left lung appears relatively clear. The patient had a prior chest x-ray performed November 2019 where no significant effusion was identified. PG Care Time/CCT Total # of Minutes Spent Total Time Spent with Patient: Total time spent is greater than 50% in coordination of care (as documented) at patient's floor/unit and/or counseling patient: Coding Level of Care Code 97189 Inpt Consult Level [address] scan of lung R91.8 Acute dyspnea R06.00 Pleural effusion on right J90
--- NOTE | 2020-03-24 15:11 | Procedure Note ---
Procedure Note Date of Service March 24, 2020 Procedure: Diagnostic therapeutic ultrasound-guided catheter thoracentesis Mail Sorting Supervisor: Dr. Williams Houston Indication: Pleural effusion Consent: Signed by patient and verified with timeout prior to procedure Anesthesia: 8 mL's 1% lidocaine without epinephrine local. Procedure: Consent was verified and timeout performed. Appropriate imaging studies were reviewed prior to the procedure. Patient was placed in a seated position and limited thoracic ultrasound was performed of the right chest. See separate imaging. Site appropriate for thoracentesis was selected. The skin was prepped and draped in normal sterile fashion. Lidocaine was used for local analgesia. Fluid was aspirated via the finder needle. A small skin lisset was made with the scalpel and the catheter over the needle apparatus was advanced over the rib into the pleural space. Using the syringe one-way valve system, a total [id number] of cloudy brown fluid was removed. Procedure was terminated due to the collection bag filling up. Decision was made to proceed with placement of an indwelling pleural drain. Please see separate procedure note. The catheter was removed and observed to be intact. After the thoracentesis apparatus was removed, a needle was advanced through the skin lisset previously made into the pleural space. A wire was advanced through the needle and the needle removed. A 15 Latvian skater coiled tube was passed over the wire into the pleural space. The wire was removed. I was able to easily aspirate fluid. The catheter was secured using a StatLock and Vaseline impregnated gauze. Sterile dressing was applied. Post procedure chest x-ray was ordered. Fluid was sent for cell count with differential, Gram stain, culture, cytology, LDH, total protein, cholesterol, glucose, and pH. The patient tolerated the procedure well without obvious complication Coding CPT Codes Pulmonary/Thoracic - Pulmonary and Thoracic: 79607 Thoracentesis w imaging ([id number]) Pulmonary/Thoracic - Pulmonary and Thoracic: 47686 Pleural drainage w/imaging ([id number]) [facility] [place] Procedure Codes (Charges) Pulmonary/Thoracic Procedure 1: Pulmonary and Thoracic: 47803 Thoracentesis w imaging Procedure 2: Pulmonary and Thoracic: 05561 Pleural drainage w/imaging
[2020-03-24 16:05] LABS: Glucose Pleural Fluid 117 mg/dl
[2020-03-24 16:11] LABS: LDH Pleural Fluid 296 U/L; Total Protein Pleural Fluid 4.7 g/dl
[2020-03-24] MEDS: AMPICILLIN/SULBACTAM SOD 3,000 MG in 0.9 % SODIUM CHLORIDE 100 ML IV SCH ×2 (16:21→20:36)
--- NOTE | 2020-03-24 16:22 | XRay Report ---
XR chest 1V portable CLINICAL HISTORY: S/P Thoracentesis pleural effusion COMPARISON STUDY: 03/24/2020 11:21 AM FINDINGS: Considerable decrease in volume of right effusion. No postprocedural pneumothorax. Left perri g remains clear. IMPRESSION: Decrease in volume of right effusion post right thoracentesis. No evidence for pneumotho rax. ACT 112: Negative or not required by law. The above report was generated using voice recognition software. It may contain grammatical, syntax or spelling errors. Electronically signed by: Eros Araiza M.D. 03/24/2020 4:21 PM
[2020-03-24] MEDS: ACETAMINOPHEN 325 MG TAB PO PRN (16:29)
[2020-03-24 16:46] LABS: Appearance Pleural Fluid HAZY; Color Pleural Fluid AMBER; RBC Pleural Fluid (A) 19000 /uL; Source Pleural Fluid RIGHT LUNG; WBC Pleural Fluid (A) 1676 /uL
[2020-03-24 16:47] LABS: Basophils, Fluid 2 %; Eosinophils, Fluid 20 %; Lymphocytes, Fluid 69 %; Mono,Macrophage,Mesothelial 9 %; Neutrophils, Fluid 0 %
--- NOTE | 2020-03-24 17:21 | XRay Report ---
XR chest 1V portable CLINICAL HISTORY: pleural effusion BLOOD DRAINING FROM THE TUBE COMPARISON STUDY: 03/24/2020 FINDINGS: The cardiac and mediastinal contours remain stable. There is minimal interval decrease in t he size the right pleural effusion which remains moderate. There is continued evidence for right basi lar atelectasis/consolidation. Minimal increased left basilar markings remain stable. The upper lung zones appear clear. There is a catheter or catheter fragment visualized within the right upper quadra nt/right lower pleural space., IMPRESSION: 1. Minimal interval decrease in the size of the right pleural effusion. Persistent associated right b asilar atelectasis/consolidation 2. A catheter or catheter fragment is again visualized projecting over the right lower pleural space ACT 112: Negative or not required by law. Electronically signed by: Dirk Vital M.D. 03/24/2020 5:19 PM
[2020-03-24] MEDS: risperiDONE 3 MG TABLET PO SCH (20:37)
[2020-03-24] MEDS: SERTRALINE HCL 50 MG TABLET PO SCH (20:37)
[2020-03-24] MEDS: CARBAMAZEPINE 200 MG TABCR PO SCH (20:37)
[2020-03-24] MEDS: QUETIAPINE FUMARATE 100 MG TABLET PO SCH (20:38)
[2020-03-24] MEDS: DOXEPIN HCL 10 MG CAPSULE PO SCH (22:26)
[2020-03-25] MEDS: AMPICILLIN/SULBACTAM SOD 3,000 MG in 0.9 % SODIUM CHLORIDE 100 ML IV SCH ×4 (01:05→19:31)
[2020-03-25] MEDS: ACETAMINOPHEN 325 MG TAB PO PRN ×2 (05:41→19:29)
--- NOTE | 2020-03-25 08:02 | Pulmonology Progress Note ---
Date of Service March 25, 2020 Assessment & Plan (1) Abnormal CT scan of lung: Impression: 50-year-old male non-smoker with massive right-sided pleural effusion status post thoracentesis and placement of pleural drain. Fluid appears to be a lymphocytic exudate. Cytology pending. Patient is relatively asymptomatic. Recommendations: 1. Pleural effusion: Await today's chest x-ray to decide on additional management of the pleural fluid. Drainage appears to have decreased significantly with only 500 cc output over the last 12 hours. If there is significant fluid remaining on the chest x-ray today, consideration for institution of the mist protocol to facilitate pleural drainage may be appropriate. If the pleural fluid is adequately drained, consideration for removal of the pleural drain may be appropriate. We will follow-up on culture data and cytology. The fluid was not neutrophilic which would argue against an infectious etiology however think it is reasonable to keep him on antibiotics for now. 2. Dyspnea: Secondary to large pleural effusion which appears to have resolved currently. Continue clinical follow-up. 3. Management of the patient's other medical issues per the primary admitting service. We will continue to follow the patient's pulmonary and pleural issues (2) Acute dyspnea: (3) Pleural effusion on right: Admission and Anticipated Discharge Date Admission Date: March 24, 2020 Subjective Patient seen and examined. He states he feels better after drainage of the fluid. His shortness of breath is decreased. His pain is minimal. No cough or sputum production. He is tolerating a diet. Review of Systems Review of Systems: Unchanged from prior Physical Exam Constitutional: WD/WN, vitals as above Neck: trachea midline, no thyromegaly Respiratory: normal respiratory effort; not tachypneic Decreased breath sounds right lung base with dullness to percussion and decreased fremitus Cardiovascular: RRR, no murmur, no edema Chest (Breasts): Additional Comments: Drain site clean dry and intact Gastrointestinal (Abdomen): normal bowel sounds, soft, nontender, no hepatosplenomegaly Musculoskeletal: Extremities: extremities normal to inspection Skin: no rashes, warm and dry Neurologic: Nonfocal exam Lymphatic: no cervical lymphadenopathy Results & Data Results & Data ([facility]) Vital Signs (Past 12 Hours) Vital Signs Temp Pulse Resp BP BP Pulse Ox 03/25/20 07:27 37.1 C 75 18 119/79 98 03/25/20 03:32 36.7 C 66 18 146/79 H 92 03/24/20 23:55 37.2 C 80 20 117/74 96 Laboratory Results Pleural fluid analysis: Lymphocytic exudate Cell count 69% lymphocytes, 20% eosinophils, 2% basophils, 9% mesothelial cells Pleural pH 7.4 Pleural total protein 4.7 Pleural LDH 296 Pleural glucose 117 Pleural triglycerides 45 Pleural cholesterol pending Gram stain and culture of pleural fluid with no organisms identified. Culture pending Pleural fluid cytology pending Diagnostic Findings Chest x-ray from today currently pending PG Care Time/CCT Total # of Minutes Spent Total Time Spent with Patient: Total time spent is greater than 50% in coordination of care (as documented) at patient's floor/unit and/or counseling patient: Coding Level of Care Code 47152 Subseq Hosp Care Lvl [address] scan of lung R91.8 Acute dyspnea R06.00 Pleural effusion on right J90 Time Spent (min) 39
[2020-03-25] MEDS: BENZTROPINE MESYLATE 1 MG TAB PO SCH (08:10)
[2020-03-25] MEDS: ARIPiprazole 15 MG TAB PO SCH (08:10)
[2020-03-25] MEDS: CARBAMAZEPINE 200 MG TABCR PO SCH ×2 (08:10→20:59)
[2020-03-25 08:12] LABS: Albumin Level 2.1 gm/dl (3.4-5.0); BUN Creatinine Ratio 11.5 (10-20); Bilirubin Direct 0.2 mg/dl (0-0.2); Calcium 8.5 mg/dl (8.5-10.1); Creatinine Clr Calc Pharmacy 184.7 ml/min; Est GFR (Non-African American) 107.9; Potassium 3.6 mmol/L (3.5-5.1)
[2020-03-25 08:16] LABS: Bilirubin,Total 0.4 mg/dl (0.2-1); Total Protein 6.4 gm/dl (6.4-8.2)
[2020-03-25 08:35] LABS: Basophils # (auto) 0.03 K/uL (0-0.2); Basophils % (auto) 0.4 %; Eosinophils # (auto) 0.07 K/uL (0-0.5); Hematocrit (blood only) 38.8 % (42-52); Hemoglobin 12.9 g/dL (14.0-18.0); Immature Granulocytes # (auto) 0.06 K/uL (0.00-0.02); Immature Granulocytes % (auto) 0.8 %; Lymphocytes # (auto) 0.97 K/uL (1.2-3.4); Lymphocytes % (auto) 13.3 %; Mean Corpuscular Hgb Conc 33.2 g/dL (32-36); Mean Corpuscular Volume 90.2 fL (80-100); Mean Platelet Volume 8.6 fL (7.4-10.4); Monocytes % (auto) 6.9 %; Neutrophils # (auto) 5.64 K/uL (1.4-6.5); Neutrophils % (auto) 77.6 %; Platelet Count 336 K/uL (130-400); RDW Coefficient of Variation 12.2 % (11.5-14.5); RDW Standard Deviation 40.4 fL (36.4-46.3); White Blood Count 7.27 K/uL (4.8-10.8)
[2020-03-25] MEDS ORDERED: DOXEPIN HCL 10 MG CAPSULE PO SCH (09:00)
--- NOTE | 2020-03-25 10:56 | XRay Report ---
XR chest 1V portable CLINICAL HISTORY: follow up effusion dyspnea COMPARISON STUDY: 03/24/2020 FINDINGS: Small residual right effusion post right basilar chest drainage tube placement. Unchanged consolidated and/or infiltrative changes right base. Left lung remains clear. IMPRESSION: 1. Similar to minimally improved exam. 2. Slight decrease in volume of a small residual right effusion. 3. Unchanged consolidative and/or infiltrative change right lung base. ACT 112: Negative or not required by law. The above report was generated using voice recognition software. It may contain grammatical, syntax or spelling errors. Electronically signed by: Eros Araiza M.D. 03/25/2020 10:55 AM
--- NOTE | 2020-03-25 11:37 | Electrocardiogram Report ---
Test Reason : Blood Pressure : / mmHG Vent. Rate : 097 BPM Atrial Rate : 097 BPM P-R Int : 142 ms QRS Dur : 090 ms QT Int : 328 ms P-R-T Axes : 150 136 147 degrees QTc Int : 416 ms R arm L arm lead reversal Low voltage QRS Abnormal ECG When compared with ECG of 23-MAR-2020 20:19, (unconfirmed) QRS voltage has decreased Otherwise similar taking into account lead reversal Confirmed by Hernando Baker ([id number]) on 03/25/2020 11:36:30 AM Referred By: REFERRED SELF Confirmed By:Hernando Baker
--- NOTE | 2020-03-25 12:08 | Hospitalist Progress Note ---
Date of Service March 25, 2020 Assessment & Plan (1) Pleural effusion on right: Pt is a 50 yo male here with large possibly loculated right sided pleural effusion. * Pulmonary consult -- appreciate assistance s/p thoracentsis on 03/[address] Houston for 1800mL with additional 1500ml drained evening 03/24. Fluid appears lumphocytic however cytology pending. Patient no longer requiring supplemental O2 -- currently 94% on RA * Repeat CXR with slight decrease in volume of small residual RIGHT effusion, UNCHANGED consolidative and/or infiltrative change RIGHT base * Initiating MIST II protocol * Alk phos still elevated, however trending down. ?chylothorax * Continue empiric Unasyn IV for now -- follow culture and cytology * Repeat CXR in AM (2) Shortness of breath: * RESOLVED * Secondary to large pleural effusion as above * Not hypoxic -- currently 94% on RA (3) Schizoaffective disorder: * Chronic. 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 Will need assistance with home health, CM assisting Admission and Anticipated Discharge Date Admission Date: March 24, 2020 Supervising Physician Co-Signing Physician Notes Attending Attestation - Chart reviewed, care plan d/w FANNY Benson. I agree w/ the mcqueen components of her documentation. 50yo male who presented with very large right-sided pleural effusion. s/p thoracentesis. Fluid c/w exudative effusion. Large # of lymphocytes on cell counts - worrisome for malignancy vs TB vs other. Cytologies pending. Has pigtail catheter in place - MIST-2 protocol initiated. Remains on unasyn for possibility of infectious process. Follow all studies. Appreciate pulmonary assistance. Kobe Be MD Subjective Patient states he is doing well doing. Minimal discomfort at site of chest tube, but states the drainage is a lot less than yesterday. Breathing comfortably on room air. Denies shortness of breath or chest pain, fevers or chills at this time. Denies abdominal fullness or n/v. States his appetite is much improved from the day prior. Concerns regarding home health for chest tube management as he is currently doing outpatient PT for hip earlier this year. Review of Systems Review of Systems: All systems reviewed & are unremarkable except as noted in HPI & below Physical Exam Constitutional: WD/WN, vitals as above + obese; no acute distress Eyes: PERRL, conjunctivae normal, anicteric sclerae Neck: trachea midline, no thyromegaly Respiratory: normal respiratory effort; no respiratory distress and no labored breathing Auscultation: + diminished lung sounds (R base, R apex); no crackles, no rales and no wheezes Cardiovascular: RRR, no murmur, no edema Chest (Breasts): Additional Comments: chest tube to RIGHT chest wall, 100mL serosanguineous drainage present no crepitus appreciated Gastrointestinal (Abdomen): normal bowel sounds, soft, nontender, no hepatosplenomegaly Musculoskeletal: no cyanosis or clubbing, extremities motor strength 5/5 Skin: no rashes, warm and dry Neurologic: PERRL, EOMI, accommodation nl, no face palsy, no dysarthria Psychiatric: A+Ox3, euthymic affect Lymphatic: no cervical or axillary lymphadenopathy Results & Data Results & Data ([facility]) Vital Signs (Past 12 Hours) Vital Signs Temp Pulse Resp BP BP Pulse Ox 03/25/20 11:10 36.5 C 84 18 121/77 94 03/25/20 07:27 37.1 C 75 18 119/79 98 03/25/20 03:32 36.7 C 66 18 146/79 H 92 Laboratory Results 03/25/20 03/25/20 03/24/20 Range/Units 06:52 06:52 Unknown WBC 7.27 (4.8-10.8) K/uL RBC 4.30 L (4.7-6.1) M/uL Hgb 12.9 L (14.0-18.0) g/dL Hct 38.8 L (42-52) % MCV 90.2 (80-100) fL MCH 30.0 (25-34) pg MCHC 33.2 (32-36) g/dL RDW Std Deviation 40.4 (36.4-46.3) fL RDW Coeff of Silvia 12.2 (11.5-14.5) % Plt Count 336 (130-400) K/uL MPV 8.6 (7.4-10.4) fL Immature Gran % (Auto) 0.8 % Neut % (Auto) 77.6 % Lymph % (Auto) 13.3 % [place] % (Auto) 6.9 % Eos % (Auto) 1.0 % Baso % (Auto) 0.4 % Immature Gran # (Auto) 0.06 H (0.00-0.02) K/uL Neut # (Auto) 5.64 (1.4-6.5) K/uL Lymph # (Auto) 0.97 L (1.2-3.4) K/uL [place] # (Auto) 0.50 (0.11-0.59) K/uL Eos # (Auto) 0.07 (0-0.5) K/uL Baso # (Auto) 0.03 (0-0.2) K/uL Sodium 133 L (136-145) mmol/L Potassium 3.6 (3.5-5.1) mmol/L Chloride 103 (98-107) mmol/L Carbon Dioxide 25 (21-32) mmol/L Anion Gap 5.0 (3-11) BUN 8 (7-18) mg/dl Creatinine 0.71 (0.6-1.4) mg/dl Est Cr Clr Drug Dosing 184.7 ml/min Est GFR ( Amer) 125.0 Est GFR (Non-Af Amer) 107.9 BUN/Creatinine Ratio 11.5 (10-20) Glucose 146 H (70-99) mg/dl Calcium 8.5 (8.5-10.1) mg/dl Total Bilirubin 0.4 (0.2-1) mg/dl Direct Bilirubin 0.2 (0-0.2) mg/dl AST 24 (15-37) U/L ALT 31 (12-78) U/L Alkaline Phosphatase 163 H (45-117) U/L Total Protein 6.4 (6.4-8.2) gm/dl Albumin 2.1 L (3.4-5.0) gm/dl Fluid Neutrophils % % Fluid Lymphocytes % % Fluid Eosinophils % % Fluid Basophils % % Fluid Meso/Macro/[place] % % Pleural Fluid Source Pleural Color Pleural Appearance Pleural pH (7.3-7.4) Pleural WBC /uL Pleural RBC /uL Pleural Total Protein g/dl Pleural LDH U/L Pleural Glucose mg/dl Pleural Cholesterol Pleural Triglycerides 45 mg/dl 03/24/20 03/24/20 03/24/20 Range/Units Unknown Unknown Unknown WBC (4.8-10.8) K/uL RBC (4.7-6.1) M/uL Hgb (14.0-18.0) g/dL Hct (42-52) % MCV (80-100) fL MCH (25-34) pg MCHC (32-36) g/dL RDW Std Deviation (36.4-46.3) fL RDW Coeff of Silvia (11.5-14.5) % Plt Count (130-400) K/uL MPV (7.4-10.4) fL Immature Gran % (Auto) % Neut % (Auto) % Lymph % (Auto) % [place] % (Auto) % Eos % (Auto) % Baso % (Auto) % Immature Gran # (Auto) (0.00-0.02) K/uL Neut # (Auto) (1.4-6.5) K/uL Lymph # (Auto) (1.2-3.4) K/uL [place] # (Auto) (0.11-0.59) K/uL Eos # (Auto) (0-0.5) K/uL Baso # (Auto) (0-0.2) K/uL Sodium (136-145) mmol/L Potassium (3.5-5.1) mmol/L Chloride (98-107) mmol/L Carbon Dioxide (21-32) mmol/L Anion Gap (3-11) BUN (7-18) mg/dl Creatinine (0.6-1.4) mg/dl Est Cr Clr Drug Dosing ml/min Est GFR ( Amer) Est GFR (Non-Af Amer) BUN/Creatinine Ratio (10-20) Glucose (70-99) mg/dl Calcium (8.5-10.1) mg/dl Total Bilirubin (0.2-1) mg/dl Direct Bilirubin (0-0.2) mg/dl AST (15-37) U/L ALT (12-78) U/L Alkaline Phosphatase (45-117) U/L Total Protein (6.4-8.2) gm/dl Albumin (3.4-5.0) gm/dl Fluid Neutrophils % 0 % Fluid Lymphocytes % 69 % Fluid Eosinophils % 20 % Fluid Basophils % 2 % Fluid Meso/Macro/[place] % 9 % Pleural Fluid Source RIGHT LUNG Pleural Color NNAMDI Pleural Appearance HAZY Pleural pH 7.44 H (7.3-7.4) Pleural WBC 1676 /uL Pleural RBC 42287 /uL Pleural Total Protein 4.7 g/dl Pleural LDH 296 U/L Pleural Glucose 117 mg/dl Pleural Cholesterol Pending Pleural Triglycerides mg/dl Diagnostic Findings Chest XRAY IMPRESSION: 1. Similar to minimally improved exam. 2. Slight decrease in volume of a small residual right effusion. 3. Unchanged consolidative and/or infiltrative change right lung base. PG Care Time/CCT Total # of Minutes Spent Total Time Spent with Patient: Total time spent is greater than 50% in coordination of care (as documented) at patient's floor/unit and/or counseling patient: Coding Level of Care Code 99002 Subseq Hosp Care Lvl 3 Diagnoses Pleural effusion on right J90 Shortness of breath R06.02 Schizoaffective disorder F25.9 Essential hypertriglyceridemia E78.1 Depression F32.9 Mental disability F79 Elevated alkaline phosphatase level R74.8 DVT prophylaxis Z29.9
[2020-03-25] MEDS ORDERED: ENOXAPARIN INJ 40 MG/0.4 ML SYR SQ SCH (12:30)
[2020-03-25] MEDS: ALTEPLASE, RECOMBINANT 10 MG in SYRINGE 50 ML IPL SCH (13:53)
[2020-03-25] MEDS ORDERED: Nursing to Pharmacy Communication ONE (14:03)
[2020-03-25] MEDS: DORNASE ALFA 5 ML in SYRINGE 25 ML IPL SCH (15:13)
[2020-03-25] MEDS: SERTRALINE HCL 50 MG TABLET PO SCH (20:59)
[2020-03-25] MEDS: QUETIAPINE FUMARATE 100 MG TABLET PO SCH (20:59)
[2020-03-25] MEDS: DOXEPIN HCL 10 MG CAPSULE PO SCH (20:59)
[2020-03-25] MEDS: risperiDONE 3 MG TABLET PO SCH (20:59)
[2020-03-26] MEDS: ALTEPLASE, RECOMBINANT 10 MG in SYRINGE 50 ML IPL SCH ×2 (01:54→14:17)
[2020-03-26] MEDS: AMPICILLIN/SULBACTAM SOD 3,000 MG in 0.9 % SODIUM CHLORIDE 100 ML IV SCH ×4 (01:59→20:11)
[2020-03-26] MEDS: ACETAMINOPHEN 325 MG TAB PO PRN ×2 (02:48→15:47)
[2020-03-26] MEDS: DORNASE ALFA 5 ML in SYRINGE 25 ML IPL SCH ×2 (03:13→15:35)
[2020-03-26 03:55] LABS: Basophils # (auto) 0.03 K/uL (0-0.2); Basophils % (auto) 0.4 %; Eosinophils # (auto) 0.11 K/uL (0-0.5); Eosinophils % (auto) 1.4 %; Hematocrit (blood only) 38.6 % (42-52); Hemoglobin 13.2 g/dL (14.0-18.0); Immature Granulocytes # (auto) 0.05 K/uL (0.00-0.02); Immature Granulocytes % (auto) 0.7 %; Lymphocytes # (auto) 0.98 K/uL (1.2-3.4); Lymphocytes % (auto) 12.9 %; Mean Corpuscular Hemoglobin 30.6 pg (25-34); Mean Corpuscular Hgb Conc 34.2 g/dL (32-36); Mean Corpuscular Volume 89.6 fL (80-100); Mean Platelet Volume 8.2 fL (7.4-10.4); Monocytes # (auto) 0.66 K/uL (0.11-0.59); Monocytes % (auto) 8.7 %; Neutrophils # (auto) 5.76 K/uL (1.4-6.5); Neutrophils % (auto) 75.9 %; Platelet Count 347 K/uL (130-400); RDW Coefficient of Variation 12.1 % (11.5-14.5); RDW Standard Deviation 39.8 fL (36.4-46.3); Red Blood Count 4.31 M/uL (4.7-6.1); White Blood Count 7.59 K/uL (4.8-10.8)
[2020-03-26 04:11] LABS: BUN Creatinine Ratio 9.7 (10-20); Calcium 8.2 mg/dl (8.5-10.1); Creatinine Clr Calc Pharmacy 179.6 ml/min; Est GFR (African American) 123.6; Est GFR (Non-African American) 106.6; Potassium 3.6 mmol/L (3.5-5.1)
[2020-03-26 04:14] LABS: Albumin Globulin Ratio 0.5 (0.9-2); Bilirubin,Total 0.5 mg/dl (0.2-1); Globulin 4.4 gm/dl (2.5-4.0); Total Protein 6.4 gm/dl (6.4-8.2)
--- NOTE | 2020-03-26 07:36 | XRay Report ---
XR chest 1V portable CLINICAL HISTORY: follow up effusion and R base consolidation COMPARISON STUDY: March 25, 2020 FINDINGS: The cardiac and mediastinal contours remain stable. There is a decreasing right-sided pleur al effusion. There is improving aeration the right lung base. There is a right basilar pigtail pleura l catheter. There is a trace right-sided pneumothorax. The left lung is generally clear. The right up per lung zone appears clear. IMPRESSION: 1. Decreasing right pleural effusion and improving aeration of the right lung base 2. Trace right basilar pneumothorax. 3. Pigtail right pleural catheter. ACT 112: Negative or not required by law. Electronically signed by: Dirk Vital M.D. 03/26/2020 7:35 AM
--- NOTE | 2020-03-26 07:50 | Pulmonology Progress Note ---
Date of Service March 26, 2020 Assessment & Plan (1) Abnormal CT scan of lung: Impression: 50-year-old male non-smoker with massive right-sided pleural effusion status post thoracentesis and placement of pleural drain. Fluid appears to be a lymphocytic exudate. Cytology pending. Patient is relatively asymptomatic. Recommendations: 1. Pleural effusion: Radiographic and clinical improvement after intrapleural lysis. Continue Ms. to protocol. Follow-up chest x-ray in morning. If output decreases and radiograph continues to improve, may consider discontinuing the pleural drain in the next 24 to 48 hours. This was communicated to the patient. The drain has been inadvertently withdrawn to some degree. It is a coiled pigtail catheter and I do not think the patient can inadvertently pull it out. Discussed with nursing at the bedside. We will continue to reinforce the drain. I do not think it needs to be stitched at this point in time. If the patient were to remove the drain, it may not be necessary to replace it and would follow the patient clinically and radiographically at that point time. The etiology of the pleural effusion remains unclear. It does appear to be a lymphocytic exudate. Pleural triglycerides are low however cholesterol is pending. Does not appear consistent with chylothorax. Cytology still pending but on brief review with pathology yesterday no obvious etiology identified. 2. Dyspnea: Secondary to large pleural effusion which appears to have resolved currently. Continue clinical follow-up. 3. Management of the patient's other medical issues per the primary admitting service. We will continue to follow the patient's pulmonary and pleural issues (2) Acute dyspnea: (3) Pleural effusion on right: Admission and Anticipated Discharge Date Admission Date: March 24, 2020 Subjective Called to bedside by nursing. They reported that the patient had inadvertently removed his indwelling pleural drain. I arrived at the bedside. The patient was sitting up in no distress. The catheter was still in place but had been retracted about 4cm. After sterilely cleaning the hub of the stopcock, I was able to flush and draw fluid from the catheter confirming that it remains within the pleural space. The patient completed the first day of Ms. to protocol yesterday. Chest tube output was about 500 cc. His chest x-ray today demonstrates some improvement. Review of Systems Review of Systems: Unchanged from prior Physical Exam Constitutional: WD/WN, vitals as above Neck: trachea midline, no thyromegaly Respiratory: normal respiratory effort; not tachypneic Cardiovascular: RRR, no murmur, no edema Gastrointestinal (Abdomen): normal bowel sounds, soft, nontender, no hepatosplenomegaly Musculoskeletal: Extremities: extremities normal to inspection Skin: no rashes, warm and dry Lymphatic: no cervical lymphadenopathy Results & Data Results & Data ([facility]) Vital Signs (Past 12 Hours) Vital Signs Temp Pulse Resp BP BP Pulse Ox 03/26/20 07:11 36.5 C 85 20 120/72 94 03/26/20 03:49 37.4 C 99 H 20 117/71 93 03/26/20 03:44 38.3 C H 93 H 18 114/74 94 03/25/20 23:14 36.8 C 86 18 119/65 95 Laboratory Results 03/26/20 03:30 03/26/20 03:30 Pleural fluid cytology pending. Pleural fluid cultures negative to date Diagnostic Findings Chest x-ray today was independently reviewed and compared to prior films. There is decreasing right pleural consolidation/pleural effusion. Able to visualize the diaphragm today. PG Care Time/CCT Total # of Minutes Spent Total Time Spent with Patient: Total time spent is greater than 50% in coordination of care (as documented) at patient's floor/unit and/or counseling patient: Coding Level of Care Code 68090 Subseq Hosp Care Lvl [address] scan of lung R91.8 Acute dyspnea R06.00 Pleural effusion on right J90
[2020-03-26] MEDS: ARIPiprazole 15 MG TAB PO SCH (07:54)
[2020-03-26] MEDS: BENZTROPINE MESYLATE 1 MG TAB PO SCH (07:54)
[2020-03-26] MEDS: CARBAMAZEPINE 200 MG TABCR PO SCH ×2 (07:54→20:11)
--- NOTE | 2020-03-26 12:09 | Hospitalist Progress Note ---
Date of Service March 26, 2020 Assessment & Plan (1) Pleural effusion on right: Pt is a 50 yo male here with large possibly loculated right sided pleural effusion. * Changed to FULL ADMIT * Pulmonary consult -- appreciate assistance s/p thoracentesis on 03/[address] Houston for 1800mL with additional 1500ml drained evening 03/24. Additional 500cc output overnight via pigtail catheter hooked to Janet Patient no longer requiring supplemental O2 * Initiated on MIST II protocol on 03/25 * Unasyn IV for now Temp of 38.3C overnight. Repeat BCx pending. Initial culture from 03/23 NGTD Added adenosine deaminase to pleural fluid, pending Fluid consistent with exudative effusion, although elevated lymphocytes suspicious for malignancy vs TB vs other --> Cytology highlighted numerous lymphocytes with mixed population T/B cells, T cell predominant --?malignancy * Repeat CXR with decreasing R effusion and improvement of aeration R base -- possibility to remove catheter in AM pending improvement in AM * Alk phos still elevated * Follow culture * CXR in AM (2) Shortness of breath: * RESOLVED * Secondary to large pleural effusion as above * Not hypoxic -- currently 94% on RA (3) Schizoaffective disorder: * Chronic. 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 Will need assistance with home health if goes home with catheter vs cancelling outpatient PT as patient will be unable to have both at d/c. Admission and Anticipated Discharge Date Admission Date: March 24, 2020 Supervising Physician Co-Signing Physician Notes Attending Attestation - Chart reviewed, care plan d/w FANNY Benson. I agree w/ the mcqueen components of her documentation. 50yo male who presented with very large right-sided pleural effusion. s/p thoracentesis. Fluid c/w exudative effusion. Large # of lymphocytes on cell counts - worrisome for malignancy vs TB vs other. Cytologies completed; negative for malignant cells. Has pigtail catheter in place - MIST-2 protocol ongoing. Remains on unasyn for possibility of infectious process. Blood cx's and pleural fluid cultures thus far negative. Kobe Be MD Subjective Patient states he feels much better today. Denies shortness of breath. Some tenderness around catheter site as it had been accidently pulled this morning and repositioned. Discussed additional test added to pleural fluid and updated mother on phone in room with patient present. Denies fevers, chills, night sweats, chest pain, shortness of breath, abdominal pain. Good appetite. Eating/drinking without difficulty. Review of Systems Review of Systems: All systems reviewed & are unremarkable except as noted in HPI & below Physical Exam Constitutional: WD/WN, vitals as above no acute distress Eyes: PERRL, conjunctivae normal, anicteric sclerae Neck: trachea midline, no thyromegaly Respiratory: normal respiratory effort; no respiratory distress and no labored breathing Auscultation: + diminished lung sounds (R base, R apex); no crackles, no rales and no wheezes Cardiovascular: RRR, no murmur, no edema Chest (Breasts): Additional Comments: catheter to R chest wall, hooked to suction no crepitus Gastrointestinal (Abdomen): normal bowel sounds, soft, nontender, no hepato splenomegaly Musculoskeletal: no cyanosis or clubbing, extremities motor strength 5/5 Skin: no rashes, warm and dry Neurologic: PERRL, EOMI, accommodation nl, no face palsy, no dysarthria Psychiatric: A+Ox3, euthymic affect Lymphatic: no cervical or axillary lymphadenopathy Results & Data Results & Data ([facility]) Vital Signs (Past 12 Hours) Vital Signs Temp Pulse Resp BP BP Pulse Ox 03/26/20 07:11 36.5 C 85 20 120/72 94 03/26/20 03:49 37.4 C 99 H 20 117/71 93 03/26/20 03:44 38.3 C H 93 H 18 114/74 94 Laboratory Results 03/26/20 03/26/20 Range/Units 03:30 03:30 WBC 7.59 (4.8-10.8) K/uL RBC 4.31 L (4.7-6.1) M/uL Hgb 13.2 L (14.0-18.0) g/dL Hct 38.6 L (42-52) % MCV 89.6 (80-100) fL MCH 30.6 (25-34) pg MCHC 34.2 (32-36) g/dL RDW Std Deviation 39.8 (36.4-46.3) fL RDW Coeff of Silvia 12.1 (11.5-14.5) % Plt Count 347 (130-400) K/uL MPV 8.2 (7.4-10.4) fL Immature Gran % (Auto) 0.7 % Neut % (Auto) 75.9 % Lymph % (Auto) 12.9 % Sierra % (Auto) 8.7 % Eos % (Auto) 1.4 % Baso % (Auto) 0.4 % Immature Gran # (Auto) 0.05 H (0.00-0.02) K/uL Neut # (Auto) 5.76 (1.4-6.5) K/uL Lymph # (Auto) 0.98 L (1.2-3.4) K/uL Sierra # (Auto) 0.66 H (0.11-0.59) K/uL Eos # (Auto) 0.11 (0-0.5) K/uL Baso # (Auto) 0.03 (0-0.2) K/uL Sodium 135 L (136-145) mmol/L Potassium 3.6 (3.5-5.1) mmol/L Chloride 103 (98-107) mmol/L Carbon Dioxide 25 (21-32) mmol/L Anion Gap 7.0 (3-11) BUN 7 (7-18) mg/dl Creatinine 0.73 (0.6-1.4) mg/dl Est Cr Clr Drug Dosing 179.6 ml/min Est GFR ( Amer) 123.6 Est GFR (Non-Af Amer) 106.6 BUN/Creatinine Ratio 9.7 L (10-20) Glucose 188 H (70-99) mg/dl Calcium 8.2 L (8.5-10.1) mg/dl Total Bilirubin 0.5 (0.2-1) mg/dl AST 27 (15-37) U/L ALT 33 (12-78) U/L Alkaline Phosphatase 165 H (45-117) U/L Total Protein 6.4 (6.4-8.2) gm/dl Albumin 2.0 L (3.4-5.0) gm/dl Globulin 4.4 H (2.5-4.0) gm/dl Albumin/Globulin Ratio 0.5 L (0.9-2) Diagnostic Findings CXR 1. Decreasing right pleural effusion and improving aeration of the right lung base 2. Trace right basilar pneumothorax. 3. Pigtail right pleural catheter. PG Care Time/CCT Total # of Minutes Spent Total Time Spent with Patient: Total time spent is greater than 50% in coordination of care (as documented) at patient's floor/unit and/or counseling patient: Coding Level of Care Code 44942 Subseq Hosp Care Lvl 2 Diagnoses Pleural effusion on right J90 Shortness of breath R06.02 Schizoaffective disorder F25.9 Essential hypertriglyceridemia E78.1 Depression F32.9 Mental disability F79 Elevated alkaline phosphatase level R74.8 DVT prophylaxis Z29.9
[2020-03-26] MEDS: SERTRALINE HCL 50 MG TABLET PO SCH (20:11)
[2020-03-26] MEDS: QUETIAPINE FUMARATE 100 MG TABLET PO SCH (20:11)
[2020-03-26] MEDS: risperiDONE 3 MG TABLET PO SCH (20:11)
[2020-03-26] MEDS: DOXEPIN HCL 10 MG CAPSULE PO SCH (20:12)
[2020-03-27] MEDS: AMPICILLIN/SULBACTAM SOD 3,000 MG in 0.9 % SODIUM CHLORIDE 100 ML IV SCH ×2 (01:59→08:19)
[2020-03-27] MEDS: ALTEPLASE, RECOMBINANT 10 MG in SYRINGE 50 ML IPL SCH ×2 (01:59→13:57)
[2020-03-27] MEDS: DORNASE ALFA 5 ML in SYRINGE 25 ML IPL SCH ×2 (03:14→15:19)
--- NOTE | 2020-03-27 07:42 | XRay Report ---
XR chest 1V portable CLINICAL HISTORY: follow up effusion and R base consolidation COMPARISON STUDY: 03/26/2020 FINDINGS: The cardiac and mediastinal contours remain stable. There is right-sided volume loss. There is a right-sided pigtail pleural catheter. There is a trace right basilar pneumothorax. There is per sistent right-sided pleural fluid/thickening similar to the prior study. There are minimal associated right basilar airspace opacities.[ IMPRESSION: Stable findings ACT 112: Negative or not required by law. Electronically signed by: Dirk Vital M.D. 03/27/2020 7:40 AM
[2020-03-27] MEDS: ARIPiprazole 15 MG TAB PO SCH (08:20)
[2020-03-27] MEDS: BENZTROPINE MESYLATE 1 MG TAB PO SCH (08:20)
[2020-03-27] MEDS: CARBAMAZEPINE 200 MG TABCR PO SCH ×2 (08:20→21:18)
--- NOTE | 2020-03-27 08:33 | Pulmonology Progress Note ---
Date of Service March 27, 2020 Assessment & Plan (1) Abnormal CT scan of lung: Impression: 50-year-old male non-smoker with massive right-sided pleural effusion status post thoracentesis and placement of pleural drain. Fluid appears to be a lymphocytic exudate. Cytology with predominantly lymphs, no malignancy. Patient is relatively asymptomatic. Recommendations: 1. Pleural effusion: Continue to keep pleural drain in place until output decreases below 150 to 200 cc/day at which point time he can be discontinued. There may be a small pneumo ex vacuo at the right lung base which will be followed radiographically. Etiology of the effusion is somewhat unclear. It does not appear infected and will stop antibiotics at this point time. Chylothorax appears unlikely given the normal triglycerides. Cholesterol is still pending. No risk factors to suggest tuberculosis and will defer pleural fluid ADA. Will check NASEEM. Review of the patient's med list does show that he is taking carbamazepine which has a low incidence of causing pleural effusion and the benefits of continuing this medication at this point time appear to outweigh the risks. With 20% eosinophils identified on the fluid, drug-induced pleural effusion would be on the list. He has no other signs or symptoms to suggest serositis. If the effusion were to recur, consideration for discontinuation of carbamazepine may be appropriate. 2. Dyspnea: Secondary to large pleural effusion which appears to have resolved currently. Continue clinical follow-up. 3. Management of the patient's other medical issues per the primary admitting service. The patient may be dismissed from the hospital once his pleural drain is decreased. Would keep pleural drain in place until output decreases to less than 150 to 200 cc per 24 hours. This was communicated to the patient. (2) Acute dyspnea: (3) Pleural effusion on right: Admission and Anticipated Discharge Date Admission Date: March 26, 2020 Subjective Patient seen and examined. No complaints overnight. His pain is well controlled. He is tolerating the chest tube. He is appropriately anxious to go home. No fevers chills or night sweats overnight. Physical Exam Constitutional: WD/WN, vitals as above Neck: trachea midline, no thyromegaly Respiratory: normal respiratory effort; not tachypneic Cardiovascular: RRR, no murmur, no edema Gastrointestinal (Abdomen): normal bowel sounds, soft, nontender, no hepatosplenomegaly Musculoskeletal: Extremities: extremities normal to inspection Skin: no rashes, warm and dry Lymphatic: no cervical lymphadenopathy Results & Data Results & Data ([facility]) Vital Signs (Past 12 Hours) Vital Signs Temp Pulse Resp BP Pulse Ox 03/27/20 07:24 36.8 C 79 18 133/85 94 03/26/20 23:43 37 C 100 H 18 117/63 93 Laboratory Results 03/26/20 03:30 03/26/20 03:30 Cultures no growth to date. AFB negative Cytology showed predominantly lymphocytes, both B and T cells, T-cell predominant. Diagnostic Findings Chest x-ray from today was independently reviewed. It demonstrates decreasing pleural fluid collection at the right lung base with some adjacent scarring. No other acute changes PG Care Time/CCT Total # of Minutes Spent Total Time Spent with Patient: Total time spent is greater than 50% in c oordination of care (as documented) at patient's floor/unit and/or counseling patient: Coding Level of Care Code 99347 Subseq Hosp Care Lvl [address] scan of lung R91.8 Acute dyspnea R06.00 Pleural effusion on right J90
[2020-03-27 09:08] LABS: Basophils # (auto) 0.04 K/uL (0-0.2); Basophils % (auto) 0.5 %; Eosinophils # (auto) 0.32 K/uL (0-0.5); Eosinophils % (auto) 4.3 %; Hematocrit (blood only) 40.1 % (42-52); Hemoglobin 13.6 g/dL (14.0-18.0); Immature Granulocytes # (auto) 0.05 K/uL (0.00-0.02); Immature Granulocytes % (auto) 0.7 %; Lymphocytes # (auto) 0.95 K/uL (1.2-3.4); Lymphocytes % (auto) 12.7 %; Mean Corpuscular Hemoglobin 30.3 pg (25-34); Mean Corpuscular Hgb Conc 33.9 g/dL (32-36); Mean Corpuscular Volume 89.3 fL (80-100); Mean Platelet Volume 8.5 fL (7.4-10.4); Monocytes # (auto) 0.49 K/uL (0.11-0.59); Monocytes % (auto) 6.5 %; Neutrophils # (auto) 5.64 K/uL (1.4-6.5); Neutrophils % (auto) 75.3 %; Platelet Count 319 K/uL (130-400); RDW Coefficient of Variation 12.2 % (11.5-14.5); RDW Standard Deviation 39.5 fL (36.4-46.3); Red Blood Count 4.49 M/uL (4.7-6.1); White Blood Count 7.49 K/uL (4.8-10.8)
[2020-03-27 09:12] LABS: Albumin Level 1.9 gm/dl (3.4-5.0); BUN Creatinine Ratio 14.4 (10-20); Calcium 8.5 mg/dl (8.5-10.1); Creatinine Clr Calc Pharmacy 215.4 ml/min; Est GFR (African American) 133.1; Est GFR (Non-African American) 114.8; Potassium 3.8 mmol/L (3.5-5.1)
[2020-03-27 09:15] LABS: Albumin Globulin Ratio 0.4 (0.9-2); Bilirubin,Total 0.5 mg/dl (0.2-1); Globulin 4.6 gm/dl (2.5-4.0); Total Protein 6.5 gm/dl (6.4-8.2)
--- NOTE | 2020-03-27 10:39 | Hospitalist Progress Note ---
Date of Service March 27, 2020 Assessment & Plan (1) Pleural effusion on right: Pt is a 50 yo male here with large possibly loculated right sided pleural effusion. * Pulmonary consult -- appreciate assistance s/p thoracentesis on 03/[address] Houston for 1800mL initially. Pigtail catheter placed, hooked to Janet -- management per pulmonary service Additional 600cc output overnight. Total 1619cc. pleural drain to remain in place until output decreases to <150- 200cc/day and then can be removed. Fluid consistent with exudative effusion, although elevated lymphocytes suspicious for malignancy vs TB vs other --> Cytology predominately lymphocytes, no malignancy. Chylothorax unlikely, triglycerides wnl Pleural cholesterol still pending NASEEM ordered, pending. ?RA Adenosine deaminase to pleural fluid, pending Of note, patient on Tegretol with 20% eosinophil on pleural fluid -- possible drug induced effusion. Benefits>Risk for discontinuation at this time, however would consider d/c in future if effusion recurs * O2 sat 94% on RA * Initiated on MIST II protocol on 03/25 * Unasyn IV discontinued per pulmonary rec Temp of 38.3C overnight. Repeat BCx pending. Initial culture from 03/23 NGTD * Repeat CXR with stable findings as above -- possibility to remove catheter in AM pending output * Alk phos still elevated * Follow culture * CXR in AM (2) Shortness of breath: * RESOLVED * Secondary to large pleural effusion as above * Not hypoxic -- currently 94% on RA (3) Schizoaffective disorder: * Chronic. 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 * Continue to trend (8) Hyponatremia: * Na down to 132. May be related to mediations * Will check urine sodium * Fluid restriction 1800ml * BMP in AM (9) DVT prophylaxis: * SCDs * Will hold off Lovenox as patient on MIST II protocol Dispo- CXR in AM. Will need assistance with home health if goes home with catheter vs cancelling outpatient PT as patient will be unable to have both at d/c. Admission and Anticipated Discharge Date Admission Date: March 26, 2020 Subjective Patient evaluated this morning. Denies fever, chills, shortness of breath or chest pain at this time. Very anxious and tearful regarding being away from significant other and would like to go home today. Discussed case with pulm as well as patient multiple times as became tearful at the thought of being unable to go today. Discussed that he may leave against medical advance but that he would be at increased risk of complications and recurrence. Patient talked with significant other on phone who stated she did not like hospitals and was not able to come in. Not able to operate patient's ipad. Patient eventually agreeable to staying to continue MIST II protocol and monitor drain output and to see how it looks in the morning. Updated mother via phone in room on speaker. All questions/concerns address. Review of Systems Review of Systems: All systems reviewed & are unremarkable except as noted in HPI & below Physical Exam Constitutional: WD/WN, vitals as above no acute distress Eyes: PERRL, conjunctivae normal, anicteric sclerae Neck: trachea midline, no thyromegaly Respiratory: normal respiratory effort; no respiratory distress and no labored breathing Auscultation: + diminished lung sounds (R); no crackles, no rales and no wheezes catheter to R chest hooked to Janet. Serosanguineous drainage present. Cardiovascular: RRR, no murmur, no edema Gastrointestinal (Abdomen): normal bowel sounds, soft, nontender, no hepatosplenomegaly Musculoskeletal: no cyanosis or clubbing, extremities motor strength 5/5 Skin: no rashes, warm and dry Neurologic: PERRL, EOMI, accommodation nl, no face palsy, no dysarthria Psychiatric: Orientation: alert and oriented x 3 Affect: + anxious affect and + tearful affect Lymphatic: no cervical or axillary lymphadenopathy Results & Data Results & Data ([facility]) Vital Signs (Past 12 Hours) Vital Signs Temp Pulse Resp BP Pulse Ox 03/27/20 07:24 36.8 C 79 18 133/85 94 03/26/20 23:43 37 C 100 H 18 117/63 93 Laboratory Results 03/27/20 03/27/20 03/27/20 Range/Units 10:22 08:29 08:29 WBC 7.49 (4.8-10.8) K/uL RBC 4.49 L (4.7-6.1) M/uL Hgb 13.6 L (14.0-18.0) g/dL Hct 40.1 L (42-52) % MCV 89.3 (80-100) fL MCH 30.3 (25-34) pg MCHC 33.9 (32-36) g/dL RDW Std Deviation 39.5 (36.4-46.3) fL RDW Coeff of Silvia 12.2 (11.5-14.5) % Plt Count 319 (130-400) K/uL MPV 8.5 (7.4-10.4) fL Immature Gran % (Auto) 0.7 % Neut % (Auto) 75.3 % Lymph % (Auto) 12.7 % O'Brien % (Auto) 6.5 % Eos % (Auto) 4.3 % Baso % (Auto) 0.5 % Immature Gran # (Auto) 0.05 H (0.00-0.02) K/uL Neut # (Auto) 5.64 (1.4-6.5) K/uL Lymph # (Auto) 0.95 L (1.2-3.4) K/uL O'Brien # (Auto) 0.49 (0.11-0.59) K/uL Eos # (Auto) 0.32 (0-0.5) K/uL Baso # (Auto) 0.04 (0-0.2) K/uL Sodium 132 L (136-145) mmol/L Potassium 3.8 (3.5-5.1) mmol/L Chloride 101 (98-107) mmol/L Carbon Dioxide 24 (21-32) mmol/L Anion Gap 8.0 (3-11) BUN 9 (7-18) mg/dl Creatinine 0.61 (0.6-1.4) mg/dl Est Cr Clr Drug Dosing 215.4 ml/min Est GFR ( Amer) 133.1 Est GFR (Non-Af Amer) 114.8 BUN/Creatinine Ratio 14.4 (10-20) Glucose 183 H (70-99) mg/dl Calcium 8.5 (8.5-10.1) mg/dl Total Bilirubin 0.5 (0.2-1) mg/dl AST 27 (15-37) U/L ALT 34 (12-78) U/L Alkaline Phosphatase 206 H (45-117) U/L Total Protein 6.5 (6.4-8.2) gm/dl Albumin 1.9 L (3.4-5.0) gm/dl Globulin 4.6 H (2.5-4.0) gm/dl Albumin/Globulin Ratio 0.4 L (0.9-2) NASEEM Screen Pending Miscellaneous Test 03/24/20 Range/Units Unknown WBC (4.8-10.8) K/uL RBC (4.7-6.1) M/uL Hgb (14.0-18.0) g/dL Hct (42-52) % MCV (80-100) fL MCH (25-34) pg MCHC (32-36) g/dL RDW Std Deviation (36.4-46.3) fL RDW Coeff of Silvia (11.5-14.5) % Plt Count (130-400) K/uL MPV (7.4-10.4) fL Immature Gran % (Auto) % Neut % (Auto) % Lymph % (Auto) % O'Brien % (Auto) % Eos % (Auto) % Baso % (Auto) % Immature Gran # (Auto) (0.00-0.02) K/uL Neut # (Auto) (1.4-6.5) K/uL Lymph # (Auto) (1.2-3.4) K/uL O'Brien # (Auto) (0.11-0.59) K/uL Eos # (Auto) (0-0.5) K/uL Baso # (Auto) (0-0.2) K/uL Sodium (136-145) mmol/L Potassium (3.5-5.1) mmol/L Chloride (98-107) mmol/L Carbon Dioxide (21-32) mmol/L Anion Gap (3-11) BUN (7-18) mg/dl Creatinine (0.6-1.4) mg/dl Est Cr Clr Drug Dosing ml/min Est GFR ( Amer) Est GFR (Non-Af Amer) BUN/Creatinine Ratio (10-20) Glucose (70-99) mg/dl Calcium (8.5-10.1) mg/dl Total Bilirubin (0.2-1) mg/dl AST (15-37) U/L ALT (12-78) U/L Alkaline Phosphatase (45-117) U/L Total Protein (6.4-8.2) gm/dl Albumin (3.4-5.0) gm/dl Globulin (2.5-4.0) gm/dl Albumin/Globulin Ratio (0.9-2) NASEEM Screen Miscellaneous Test Pending Diagnostic Findings CXR FINDINGS: The cardiac and mediastinal contours remain stable. There is right- sided volume loss. There is a right-sided pigtail pleural catheter. There is a trace right basilar pneumothorax. There is persistent right-sided pleural fluid/thickening similar to the prior study. There are minimal associated right basilar airspace opacities. IMPRESSION: Stable findings PG Care Time/CCT Total # of Minutes Spent Total Time Spent with Patient: Total time spent is greater than 50% in coordination of care (as documented) at patient's floor/unit and/or counseling patient: Coding Level of Care Code 05272 Subseq Hosp Care Lvl 2 Diagnoses Pleural effusion on right J90 Shortness of breath R06.02 Schizoaffective disorder F25.9 Essential hypertriglyceridemia E78.1 Depression F32.9 Mental disability F79 Elevated alkaline phosphatase level R74.8 Hyponatremia E87.1 DVT prophylaxis Z29.9
[2020-03-27] MEDS: ACETAMINOPHEN 325 MG TAB PO PRN (16:39)
[2020-03-27] MEDS: DOXEPIN HCL 10 MG CAPSULE PO SCH (21:17)
[2020-03-27] MEDS: risperiDONE 3 MG TABLET PO SCH (21:17)
[2020-03-27] MEDS: QUETIAPINE FUMARATE 100 MG TABLET PO SCH (21:18)
[2020-03-27] MEDS: SERTRALINE HCL 50 MG TABLET PO SCH (21:18)
[2020-03-28] MEDS: ALTEPLASE, RECOMBINANT 10 MG in SYRINGE 50 ML IPL SCH (02:14)
[2020-03-28] MEDS: DORNASE ALFA 5 ML in SYRINGE 25 ML IPL SCH (03:35)
[2020-03-28 07:25] LABS: Hematocrit (blood only) 40.3 % (42-52); Mean Corpuscular Hemoglobin 31.3 pg (25-34); Mean Corpuscular Hgb Conc 34.7 g/dL (32-36); Mean Corpuscular Volume 90.2 fL (80-100); Mean Platelet Volume 8.1 fL (7.4-10.4); Platelet Count 304 K/uL (130-400); RDW Coefficient of Variation 12.2 % (11.5-14.5); RDW Standard Deviation 40.3 fL (36.4-46.3); Red Blood Count 4.47 M/uL (4.7-6.1); White Blood Count 8.34 K/uL (4.8-10.8)
--- NOTE | 2020-03-28 07:33 | XRay Report ---
XR chest 1V portable CLINICAL HISTORY: follow up effusion and R base consolidation COMPARISON STUDY: 03/27/2020 FINDINGS: No significant change from the prior study. Small right basilar localized pneumothorax. Par enchymal prominence right base unchanged. Lungs otherwise appear clear. IMPRESSION: Unchanged exam. Small right basilar pneumothorax unchanged. Stable parenchymal prominenc e right base. ACT 112: Negative or not required by law. The above report was generated using voice recognition software. It may contain grammatical, syntax or spelling errors. Electronically signed by: Eros Araiza M.D. 03/28/2020 7:31 AM
[2020-03-28 07:59] LABS: Albumin Level 1.9 gm/dl (3.4-5.0); BUN Creatinine Ratio 10.4 (10-20); Calcium 8.6 mg/dl (8.5-10.1); Creatinine Clr Calc Pharmacy 170.9 ml/min; Est GFR (African American) 120.9; Est GFR (Non-African American) 104.3; Potassium 3.7 mmol/L (3.5-5.1)
[2020-03-28 08:02] LABS: Albumin Globulin Ratio 0.4 (0.9-2); Bilirubin,Total 0.5 mg/dl (0.2-1); Globulin 4.4 gm/dl (2.5-4.0); Total Protein 6.3 gm/dl (6.4-8.2)
[2020-03-28] MEDS: ARIPiprazole 15 MG TAB PO SCH (08:18)
[2020-03-28] MEDS: CARBAMAZEPINE 200 MG TABCR PO SCH (08:18)
[2020-03-28] MEDS: BENZTROPINE MESYLATE 1 MG TAB PO SCH (08:18)
--- NOTE | 2020-03-28 09:03 | Pulmonology Progress Note ---
Date of Service March 28, 2020 Assessment & Plan (1) Abnormal CT scan of lung: Impression: 50-year-old male non-smoker with massive right-sided pleural effusion status post thoracentesis and placement of pleural drain. Fluid appears to be a lymphocytic exudate. Cytology with predominantly lymphs, no malignancy. Patient is relatively asymptomatic. Recommendations: 1. Pleural effusion: Etiology unclear. Chylothorax appears unlikely given the normal triglycerides. Cholesterol is still pending. No risk factors to suggest tuberculosis and will defer pleural fluid ADA. Will check NASEEM. Review of the patient's med list does show that he is taking carbamazepine which has a low incidence of causing pleural effusion and the benefits of continuing this medication at this point time appear to outweigh the risks. With 20% eosinophils identified on the fluid, drug-induced pleural effusion would be on the list. He has no other signs or symptoms to suggest serositis. If the effusion were to recur, consideration for discontinuation of carbamazepine may be appropriate. At this point time can discontinue the pleural drain and the patient can be discharged home. He should follow-up in the pulmonary clinic in approximately 7 to 10 days with a repeat chest x-ray. Will need to follow-up with NASEEM which was ordered. If fluid re-accumulates and again demonstrates eosinophilia, consideration for discontinuation of carbamazepine may be appropriate. Alternatively, consideration for pleuroscopy with pleurodesis may be appropriate. 2. Dyspnea: Secondary to large pleural effusion which appears to have resolved currently. Continue clinical follow-up. 3. Management of the patient's other medical issues per the primary admitting service. The patient may be dismissed from the hospital and follow-up with us in pulmonary clinic in 7 to 10 days with a chest x-ray (2) Acute dyspnea: (3) Pleural effusion on right: Admission and Anticipated Discharge Date Admission Date: March 26, 2020 Subjective Patient seen and examined. He again reiterates his desire to go home. He is not having any fevers chills or night sweats. No chest pain or palpitations. H is pain is well controlled. He is tolerating regular diet. Drain output has decreased significantly put out 125 cc over the last 24 hours. Review of Systems Review of Systems: All systems reviewed & are unremarkable except as noted in HPI & below Physical Exam Constitutional: WD/WN, vitals as above Neck: trachea midline, no thyromegaly Respiratory: normal respiratory effort; not tachypneic Cardiovascular: RRR, no murmur, no edema Gastrointestinal (Abdomen): normal bowel sounds, soft, nontender, no hepatosplenomegaly Musculoskeletal: Extremities: extremities normal to inspection Skin: no rashes, warm and dry Lymphatic: no cervical lymphadenopathy Results & Data Results & Data ([facility]) Vital Signs (Past 12 Hours) Vital Signs Temp Pulse Resp BP Pulse Ox 03/28/20 07:18 36.7 C 96 H 20 136/81 95 03/27/20 23:11 36.6 C 82 20 131/79 96 Laboratory Results 03/28/20 07:14 03/28/20 07:14 Diagnostic Findings Chest x-ray today was independently reviewed. There appears to be a small ex vacuo pneumo at the right lung base. The tube remains in good position. No significant reaccumulation of pleural effusion. PG Care Time/CCT Total # of Minutes Spent Total Time Spent with Patient: Total time spent is greater than 50% in coordination of care (as documented) at patient's floor/unit and/or counseling patient: Coding Level of Care Code 50636 Subseq Hosp Care Lvl [address] scan of lung R91.8 Acute dyspnea R06.00 Pleural effusion on right J90
--- NOTE | 2020-03-28 09:05 | Procedure Note ---
Procedure Note Date of Service March 28, 2020 Procedure: Removal right-sided pigtail pleural drain. Proceduralist: Rosemarie Anesthesia: None Indication: No longer requiring pleural drainage. Patient was placed in an upright seated position. The dressing was taken down. The ties securing the pigtail in place were loosened. The pigtail drain was removed with the patient exhaling. A Vaseline impregnated gauze was placed over the exit site and a Tegaderm placed over this gauze. Patient tolerated the procedure well without any complication. Coding CPT Codes Pulmonary/Thoracic - Pulmonary and Thoracic: 77041 Remove lung catheter ([id number]) [facility] [place] Procedure Codes (Charges) Pulmonary/Thoracic Procedure 1: Pulmonary and Thoracic: 53794 Remove lung catheter
[2020-03-28] MEDS ORDERED: IOVERSOL 100ml IV PRN (09:13)
--- NOTE | 2020-03-28 09:32 | CT Scan Report ---
CT SCAN OF THE ABDOMEN AND PELVIS WITH IV CONTRAST CLINICAL HISTORY: Right pleural effusion. Elevated alkaline phosphatase. COMPARISON STUDY: Abdominal CT dated 06/12/2013. Chest CT dated 03/23/2020. TECHNIQUE: Following the IV administration of 94 cc of Optiray 320, CT scan of the abdomen and pelvi s is performed from the lung bases to the proximal femora. Images are reviewed in the axial, sagittal , and coronal planes. IV contrast was administered without complication. A dose lowering technique wa s utilized adhering to the principles of ALARA. CT DOSE: 1234.31 mGy.cm FINDINGS: Lung bases: The heart is top normal in size noting trace pericardial effusion. There is volume loss a t the right lung base with rightward shift of the mediastinum. There is a small and at least partiall y loculated residual right basilar hydropneumothorax. There is right basilar scarring/consolidation. There is hyperinflation of the left lung. Scattered calcified granulomas are seen in the left lower l obe, with left basilar scarring/atelectasis. A small hiatal hernia is noted. Liver: The contrast-enhanced liver is enlarged, measuring 24.2 cm in length. The liver is normal in c ontour and attenuation. There is no intrahepatic biliary ductal dilatation. The hepatic veins and por cali veins are patent. Gallbladder: The gallbladder is distended but otherwise normal in appearance. Spleen: The spleen is enlarged measuring 16.6 cm in length. Pancreas: Moderately atrophic and grossly unremarkable. Adrenal glands: Unremarkable. Kidneys: The contrast enhanced kidneys are normal in size and without hydronephrosis. The kidneys enh ance symmetrically. There is a punctate nonobstructing right renal calculus. Abdominal vasculature: The abdominal aorta is normal in course and caliber. Bowel: No bowel obstruction is seen. Mild fecal retention is noted in the right colon. The appendix i s well-visualized and normal. Peritoneum: There is no intraperitoneal free air or abdominal ascites. There is a small fat-containin g umbilical hernia. Lymphadenopathy: None. Pelvic viscera: The prostate gland is enlarged and heterogeneous noting median lobe hypertrophy. The bladder is distended. The bladder wall is mildly thickened and trabeculated indicating chronic outlet obstruction. Skeletal structures: There is moderate lumbosacral spondylosis. A bone island in the body of L2 has m inimally increased in size dating back to 2012. No lytic or blastic lesions are seen. Posttraumatic d eformity and postoperative change is noted in the right hip. IMPRESSION: 1. There is a small residual hydropneumothorax at the right lung base. 2. There is volume loss in the right lower lung with rightward shift of the mediastinum. 3. Hepatosplenomegaly. 4. Right basilar consolidation likely represents scarring/atelectasis. Correlate clinically for evide nce of superimposed pneumonia. 5. Additional findings as above. ACT 112: Negative or not required by law. Electronically signed by: Kendell Yost M.D. 03/28/2020 9:31 AM
[2020-03-28 10:16] LABS: Estimated Average Glucose 126 mg/dl
--- NOTE | 2020-03-28 11:31 | Discharge Summary ---
Date of Service March 28, 2020 Admission HPI Per Admitting Provider This pt is a 50 yo male with a h/o intellectual disability, seizure disorder, schizoaffective disorder, depression, insomnia, hyperlipidemia, and a recent hip fracture with repair 3 months ago, who presents to the ER with SOB and PATEL x 2 weeks. He was going to PT and climbing up and down stairs for hip rehab prior to that without any difficulties. He then tried taking a walk outside in the park 2 weeks ago and noticed significant SOB. He recovers with sitting down. Denies any cough or fevers/chills, no chest pain or leg swelling. No recent sick contacts. he has been staying home with his girlfriend and does not work. He does go to the grocery store and to physical therapy but is cautious and wears a mask. he was tested fro COVID-19 here yesterday in the ER and was negative. He was also found then to have a large right-sided possibly loculated pleural effusion. He was advised to be admitted for drainage and IV abx and he left the ER AMA as he was concerned about his girlfriend being able to have enough food for the week (she also has intellectual disability). He was given a dose of IV Unasyn and po doxy and sent home with Augmentin and doxy with intent to return to the ER today. He is not hypoxic here. He denies nausea or vomiting, no diarrhea or constipation, no changes in bowel habits, no abd pain. Alk phos is elevated from previous and UA with urobilinogen. He is afebrile here and no leukocytosis. He will be admitted on observation for further evaluation of his loculated pleural effusion and IV antibiotics. Admission Exam Per Admitting Provider Constitutional: WD/WN, vitals as above broad forehead, dysmorphic features Eyes: + anicteric sclerae ENMT: external ear and nose normal, oropharynx normal Neck: trachea midline, no thyromegaly Respiratory: normal respiratory effort; no labored breathing Auscultation: + diminished lung sounds (on right side entire lung arzola); no crackles, no rhonchi and no wheezes Cardiovascular: RRR, no murmur, no edema Chest (Breasts): Chest: normal inspection of chest Gastrointestinal (Abdomen): normal bowel sounds, soft, nontender, no hepatosplenomegaly Musculoskeletal: Extremities: extremities normal to inspection; no cyanosis and no clubbing Skin: no rashes, warm and dry Neurologic: moves all extremities and awake; no focal motor deficits Psychiatric: A+Ox3, euthymic affect Lymphatic: no lymphedema Principal Diagnosis Right Pleural Effusion Discharge Exam Constitutional WD/WN, vitals as above + obese; no acute distress tall Eyes PERRL, conjunctivae normal, anicteric sclerae Neck trachea midline, no thyromegaly Respiratory normal respiratory effort; no respiratory distress and no labored breathing Auscultation: + diminished lung sounds (R); no crackles, no rales and no wheezes Cardiovascular RRR, no murmur, no edema Chest (Breasts) Additional Comments: dressing to posterior R chest wall c/d/i with Tegaderm Gastrointestinal (Abdomen) Inspection/Auscultation: abdomen normal to inspection; abdomen not distended Percussion/Palpation: abdomen soft and + hepatosplenomegaly; abdomen nontender Musculoskeletal no cyanosis or clubbing, extremities motor strength 5/5 Skin no rashes, warm and dry Neurologic PERRL, EOMI, accommodation nl, no face palsy, no dysarthria Psychiatric A+Ox3, euthymic affect Orientation: alert and oriented x 3 Lymphatic no cervical or axillary lymphadenopathy Discharge Data Allergies Allergy/AdvReac Type Severity Reaction Status Date / Time No Known Allergies Allergy Verified 03/24/20 12:00 Consultations 03/24/20 11:47 ED Decision to Admit Stat 03/24/20 13:37 Consult Case Management - Discharge Planning Routine Consult Pulmonology Routine Ordered Studies 03/24/20 13:49 US point of care ultrasound Stat CXR 03/25 CXR 03/26 CXR 03/27 CXR 03/28/20 08:[address] abd pelvis IV con only Routine Hospital Course (1) Pleural effusion on right: Pt is a 50 yo male here with large loculated right sided pleural effusion presented with shortness of breath after initially leaving AMA the day prior to help girlfriend at home with agreement that he would come back the next day and left with Augmentin/doxy. * Initially treated with Unasyn on arrival. Had temp 38.3C AM of 03/26. Blood cultures without growth to date. * Pulmonary consulted * s/p thoracentesis on 03/[address] Houston for 1800mL initially. Subsequent drainage with continued loculations. Exudative effusion although elevated lymphocytes suspicious for other causes. Cytology with predominately lymphocytes, no malignancy. Pleural cholesterol still pending. Per pulmonology service, possible that could be drug medicated with elevated eosinophils on labs values and could be caused by Tegretol. Rec continuing for now but if effusion recurs would suggest discontinuing this vs pleurodesis vs other at recommendation by Pulmonology. * MIST II protocol initiated. Total 1769mL from pigtail catheter R posterior chest wall * Repeat CXR with significant improvement * Drain output <150cc/24 hour period of time and was subsequently removed * Blood cultures without growth to date. * VSS, O2 sat 95% on RA * Set up with home health at discharge * Follow up with pulmonary service in 7-10 days with chest x-ray Pending studies/follow-up * NASEEM, Adenosine deaminase still pending on pleural fluid to assist identify initial cause, as pleural fluid with mixed findings -- ?RA vs TB (although no risk factors present, no lymphadenopathy, "B" symptoms/night sweats) vs amyloid vs [place] etc * CT A/P done prior to discharge for continued elevated alk phos which showed enlarged liver, 24.2cm in length as well as enlarged spleen, 16.6cm in length. Also with several scattered calcified granulomas L lung base. No hilar lymphadenopathy to suggest sarcoid. Also noted small residual hydropneumothorax R lung base -- to be followed up outpatient as above (2) Shortness of breath: * RESOLVED. 2/2 to above. 95% on RA (3) Schizoaffective disorder: * Chronic. Stable-- >Continued home Abilify 15mg, benztropine 1mg, c arbamazepine, doxepin, quetiapine, risperidone, sertraline, zaleplon * See above with reference to possible side effects of tegretol as noted by pulmonary service, although was not able to find much literature correlating the two (4) Essential hypertriglyceridemia: * Noted, but not on medications for this. Follow up with PCP outpatient. (5) Depression: * Continue home meds (6) Mental disability: * Supportive care (7) Elevated alkaline phosphatase level: * Alk phos elevated above normal on admission. All other LFTs wnl. Denied any abdominal pain, n/v. * No lytic/blastic lesions seen on either CT Chest or A/P. Enlarged prostate, heterogeneous median lobe hypertrophy. Denied any urinary symptoms/urgency/frequency/incomplete voiding. * Could be fatty liver but suspect related to large R loculated effusion * Alk phos continued to be elevated, 216. CT A/P with distended gallbladder but otherwise normal, no evidence of acute redd. no intrahepatic biliary ductal dilation * Suspect elevation related to hepatic congestion secondary to hepatosplenomegaly * Awaiting further testing on pleural fluid and NASEEM for cause of effusion vs parapneumonic effusion * Further non-emergent outpatient follow-up at discretion of PCP (8) Hyponatremia: * Na down to 132. May be related to mediations. * Urine sodium ordered but never collected * Na improved to 134 with fluid restriction (9) Pre-diabetes: * a1c ordered for elevated glucose on BMP. * A1c elevated at 6.0 from prior values - likely secondary to chronic psych medications * counseled, diet/exercise. * follow up with PCP. Rec repeat in 3 months (10) DVT prophylaxis: * SCDs * CHemoprophylaxis held as utilized MIST II protocol as above Discharged home with home health. Total Time Total Time Spent Total Time Spent (In Minutes): 75 Discharge Plan Discharge Items Patient Disposition: Home - Home Health Services Reason For Visit: PLEURAL EFFUSION Discharge Diagnosis: Right Sided Pleural Effusion Condition on Discharge: Fair Goals: You have been hospitalized for an urgent problem which required surgery. During your stay at [facility], we have made an effort to correct the problem that brought you to the hospital while keeping you as comfortable as possible. Surgery and medications were used to bring your condition under control and your discharge instructions will include directions for any medications you should take after leaving the hospital. Please make sure to follow the advice of your surgeon regarding follow up with the surgeon and with your primary care provider. Activity: Resume your previous activity Non-emergency contact: Primary Care Provider and Winding Machine Operator Call non-emergency contact if: you have any medication questions, your symptoms worsen, your pain is worsening and you have a fever Follow-up/Referrals: Tyler Golden MD [Primary Care Provider] - 04/03/20 3:00 pm () Williams Houston MD [Physician] - (7-[address] Houston's Office will call you with an appointment. If you do not hear from the office in a couple days, please call the office at [phone]. Thank you.) Diet: Heart Healthy Add Attending Provider Instructions: You have been hospitalized for shortness of breath and were found to have fluid build up around your lungs. You were seen by Pulmonology (Dr. Houston) and had this fluid drained and sent off for analysis. You were then initiated on medication to help break up pockets of fluid to help drain additional fluid. Repeat chest x-rays have shown significant improvement and your drain output slowed to a point where your drain was able to be removed. * Several tests of that fluid are still pending in the lab and will be followed up on at your follow up appointment with Dr. Houston in the next 7-10 days. You will need to have a chest xray done before this appointment to evaluate your progress. If this comes back, there are additional measures that can be taken, but those would be discussed at this time. There is a small chance it may be related to one of your medications but for now they will continue as they were before you came to the hospital. You have been set up with home health by our case management department and they reached out to your human services case manager from [facility] to give him an update. Please follow up with your primary care provider in the next week. Your A1c level (average measurement of the sugar in your blood) was found to be slightly elevated at 6.0 This is termed "pre-diabetes". Please continue to eat a heart healthy diet and continue to exercise as tolerated to help maintain a healthy body weight and overall health. Please keep your follow up appointment with Dr. Houston as scheduled. If you develop worsening shortness of breath, fever, chest pain, fast heart rate, abdominal pain or for any other symptoms that are concerning for you, please return to the emergency department immediately. It has been a pleasure being apart of the medical team providing for you while you have been in the hospital. Take care! Pending Studies at Discharge: Yes Studies:: Pleural Fluid - Cholesterol, Adenosine Deaminase NASEEM Blood Cultures, AFB Stand-Alone Forms: My [employer], Smoking Cessation Medications and DC Order Prescriptions: Continued aripiprazole [Abilify] 15 mg tablet 15 mg PO DAILY RF: 0 benztropine 1 mg tablet 1 mg PO QAM RF: 0 carbamazepine [Tegretol XR] 400 mg tablet extended release 12 hr 400 mg PO BID RF: 0 risperidone [Risperdal] 3 mg tablet 3 mg PO HS RF: 0 sertraline [Zoloft] 25 mg tablet 25 mg PO HS RF: 0 quetiapine [Seroquel] 100 mg Tablet 100 mg PO HS RF: 0 zaleplon 10 mg Capsule 10 mg PO HS PRN (Reason: Sleep) RF: 0 doxepin 10 mg capsule 10 mg PO DAILY RF: 0 Discontinued amoxicillin-pot clavulanate [Augmentin] 875-125 mg tablet 1 tab PO Q8H Qty: 30 RF: 0 doxycycline hyclate 100 mg tablet 100 mg PO Q12H 10 Days Qty: 20 RF: 0 Discharge Orders: Discharge Order (Routine); Ordered 03/28/20 Ordered By: Linh Benson Admission Data Admit Date/Time: 03/26/20 12:44 Attending Provider: Dano Lemus Admit Provider: Shruthi Strong Primary Care Provider: Tyler Golden Other Providers: Shruthi Strong ; Williams Houston Other Interventions: Discharge Summary Assessment (RN) Last Done: 03/28/20 12:56 DC Date/Time DO NOT enter until pt leaves facility: 03/28/20 13:46 Coding Level of Care Code D/C Day Management >30 mins Diagnoses Pleural effusion on right J90 Shortness of breath R06.02 Schizoaffective disorder F25.9 Essential hypertriglyceridemia E78.1 Depression F32.9 Mental disability F79 Elevated alkaline phosphatase level R74.8 Hyponatremia E87.1 Pre-diabetes R73.03 DVT prophylaxis Z29.9
[2020-03-28 12:04] LABS: Anti Nuclear Antibody Screen NEGATIVE (NEGATIVE)
== END 2020-03-28 13:46 | disposition home health service (06) | DRG 815 ==
LOC: 2W 10:37 → ED 10:37 → SUATTDRO 12:28 → 2W 03-25 23:08 → SUATTDRO 03-26 12:44